=== PATIENT | female | born 1945 | race Caucasian/White ===

== ENCOUNTER 2017-05-13 15:39 | Inpatient (IN) | payer MEDICARE, OTHER ==
[2017-05-13 16:37] LABS: ADD MAN DIFF? NO
[2017-05-13 16:39] LABS: HEMOGLOBIN 13.6 g/dl (12.0-16.0); RED BLOOD COUNT 4.79 10^6/ul (4.20-5.40)
[2017-05-13 16:39] LABS: WHITE BLOOD COUNT 12.5 10^3/ul (4.8-10.8)
[2017-05-13 16:40] LABS: BASOPHIL # 0.1 10^3/ul (0.0-0.1); BASOPHILS % 0.7 % (0.0-2.0); EOSINOPHILS % 0.3 % (0.0-7.0); HEMATOCRIT 42.3 % (37.0-47.0); LYMPHOCYTES % 7.7 % (15.0-51.0); MEAN CORPUSCULAR HEMOGLOBIN 28.4 pg (29.0-33.0); MEAN CORPUSCULAR HGB CONC 32.2 g/dl (32.0-37.0); MEAN CORPUSCULAR VOLUME 88.3 fl (82.0-101.0); MEAN PLATELET VOLUME 9.5 fl (7.4-10.4); MONOCYTE # 0.6 10^3/ul (0.3-0.9); MONOCYTES % 4.6 % (0.0-11.0); NEUTROPHIL # 10.8 10^3/ul (1.6-7.5); NEUTROPHILS % 86.4 % (39.0-77.0); PLATELET COUNT 377 10^3/UL (140-415); RED CELL DISTRIBUTION WIDTH 15.4 % (11.5-14.5)
[2017-05-13] MEDS: ALBUTEROL 0.5% (NEB) 2.5 MG/0.5 ML AMP INH (16:54)
[2017-05-13] MEDS: IPRATROPIUM (NEB) 0.5 MG/2.5 ML AMP INH (16:54)
[2017-05-13 17:00] LABS: ALANINE AMINOTRANSFERASE 20 IU/L (13-69); ALBUMIN 3.8 g/dl (3.3-4.9); ALBUMIN/GLOBULIN RATIO 0.86; ALKALINE PHOSPHATASE 130 IU/L (42-121); ANION GAP 21 (8-16); ASPARTATE AMINO TRANSFERASE 32 IU/L (15-46); BLOOD UREA NITROGEN 21 mg/dl (7-20); CARBON DIOXIDE 24 mmol/L (21-31); CHLORIDE 103 mmol/L (97-110); CREATININE 0.38 mg/dl (0.44-1.00); GLUCOSE 117 mg/dl (70-220); PARTIAL THROMBOPLASTIN TIME 30.1 Sec (25.0-35.0); POTASSIUM 3.9 mmol/L (3.5-5.1); PROTIME 13.3 Sec (11.9-14.9); SODIUM 144 mmol/L (135-144); TOTAL PROTEIN 8.2 g/dl (6.1-8.1)
[2017-05-13 17:11] LABS: TROPONIN-I < 0.012 ng/ml (0.00-0.12)
[2017-05-13 17:13] LABS: LACTIC ACID 2.6 mmol/L (0.5-2.0)
[2017-05-13] MEDS: CEFEPIME 2GM/50 ML (PMX) 50 ML IVPB (17:51)
[2017-05-13] MEDS: SODIUM CHLORIDE 0.9% 1L BAG IV* (17:52)
[2017-05-13] MEDS: ACETAMINOPHEN 650 MG SUPP PR (17:52)
[2017-05-13] MEDS ORDERED: ACETAMINOPHEN 650MG/20.3ML CUP (17:57)
[2017-05-13 18:24] LABS: ADD UMIC YES; UR ASCORBIC ACID 40 mg/dL (NEGATIVE); UR BACTERIA FEW /HPF (NONE SEEN); UR BILIRUBIN (Dip) NEGATIVE (NEGATIVE); UR BLOOD (Dip) NEGATIVE (NEGATIVE); UR CLARITY CLOUDY (CLEAR); UR COLOR YELLOW (YELLOW); UR GLUCOSE (Dip) NEGATIVE (NEGATIVE); UR KETONES (Dip) NEGATIVE (NEGATIVE); UR LEUKOCYTE ESTERASE (Dip) 2+ Leu/ul (NEGATIVE); UR NITRITE (Dip) NEGATIVE (NEGATIVE); UR NONSQUAMOUS EPITHELIAL CELL 3 /HPF (NONE SEEN); UR RBC 3 /HPF (0-5); UR SPECIFIC GRAVITY (Dip) 1.011 (1.003-1.030); UR SQUAMOUS EPITHELIAL CELL FEW /HPF (FEW); UR TOTAL PROTEIN (Dip) 1+ mg/dl (NEGATIVE); UR UROBILINOGEN (Dip) NEGATIVE (NEGATIVE); UR WBC 27 /HPF (0-5)
[2017-05-13 18:29] LABS: LACTIC ACID 2.1 mmol/L (0.5-2.0)
[2017-05-13] MEDS: VANCOMYCIN 1 GM (PMX) 250 ML IVPB (18:48)
[2017-05-13 20:40] LABS: LACTIC ACID 1.6 mmol/L (0.5-2.0)
[2017-05-13] MEDS ORDERED: morphine 2 MG INJ IV (21:30)
[2017-05-13] MEDS ORDERED: NACL 0.9% 3 ML SYG IV (21:30)
[2017-05-13] MEDS ORDERED: ONDANSETRON 4 MG INJ IV ×2 (21:30)
[2017-05-13] MEDS ORDERED: VANCOMYCIN IV PER PHARMACY XX (21:30)
[2017-05-13] MEDS ORDERED: ACETAMINOPHEN 325 MG TAB PO (21:30)
[2017-05-14] MEDS: ACETAMINOPHEN 325 MG TAB PO ×2 (01:40→22:11)
[2017-05-14 06:12] LABS: ADD MAN DIFF? NO
[2017-05-14 06:24] LABS: WHITE BLOOD COUNT 12.5 10^3/ul (4.8-10.8)
[2017-05-14 06:24] LABS: BASOPHIL # 0.1 10^3/ul (0.0-0.1); BASOPHILS % 0.5 % (0.0-2.0); EOSINOPHILS # 0.1 10^3/ul (0.0-0.5); EOSINOPHILS % 0.5 % (0.0-7.0); HEMATOCRIT 40.1 % (37.0-47.0); HEMOGLOBIN 12.9 g/dl (12.0-16.0); LYMPHOCYTES # 1.1 10^3/ul (0.8-2.9); LYMPHOCYTES % 8.6 % (15.0-51.0); MEAN CORPUSCULAR HEMOGLOBIN 28.3 pg (29.0-33.0); MEAN CORPUSCULAR HGB CONC 32.2 g/dl (32.0-37.0); MEAN CORPUSCULAR VOLUME 87.9 fl (82.0-101.0); MEAN PLATELET VOLUME 9.3 fl (7.4-10.4); MONOCYTE # 0.7 10^3/ul (0.3-0.9); MONOCYTES % 5.5 % (0.0-11.0); NEUTROPHIL # 10.6 10^3/ul (1.6-7.5); NEUTROPHILS % 84.6 % (39.0-77.0); PLATELET COUNT 387 10^3/UL (140-415); RED BLOOD COUNT 4.56 10^6/ul (4.20-5.40); RED CELL DISTRIBUTION WIDTH 15.6 % (11.5-14.5)
[2017-05-14] MEDS ORDERED: PENDING SANTYL ORDER FOR WOUND CARE XX (06:30)
[2017-05-14 06:55] LABS: ALANINE AMINOTRANSFERASE 31 IU/L (13-69); ALBUMIN 3.4 g/dl (3.3-4.9); ALBUMIN/GLOBULIN RATIO 0.77; ALKALINE PHOSPHATASE 115 IU/L (42-121); ANION GAP 14 (8-16); ASPARTATE AMINO TRANSFERASE 30 IU/L (15-46); BILIRUBIN,INDIRECT 0.1 mg/dl (0-1.1); BILIRUBIN,TOTAL 0.1 mg/dl (0.2-1.3); BLOOD UREA NITROGEN 14 mg/dl (7-20); CALCIUM 8.6 mg/dl (8.4-10.2); CARBON DIOXIDE 25 mmol/L (21-31); CHLORIDE 111 mmol/L (97-110); GLUCOSE 93 mg/dl (70-220); POTASSIUM 3.2 mmol/L (3.5-5.1); SODIUM 147 mmol/L (135-144); TOTAL PROTEIN 7.8 g/dl (6.1-8.1)
[2017-05-14] MEDS ORDERED: COLLAGENASE 30 GM TUBE TOP (07:00)
[2017-05-14] MEDS: CEFEPIME 1GM/50 ML (PMX) 50 ML IVPB ×2 (08:58→21:19)
[2017-05-14] MEDS: FAMOTIDINE 20 MG INJ IV ×2 (08:59→21:18)
[2017-05-14] MEDS: COLLAGENASE 30 GM TUBE TOP (08:59)
[2017-05-14] MEDS: ENOXAPARIN 30 MG/0.3 ML SYG SC (09:06)
[2017-05-14] MEDS: VANCOMYCIN 750 MG in DEXTROSE 5% 150 ML IVPB ×2 (10:35→22:08)
[2017-05-14] MEDS: VANCOMYCIN 500MG/NS (PMX) 100 ML IVPB (11:13)
[2017-05-14] MEDS: POTASSIUM CHLORIDE (SR) 20 MEQ TAB PO (13:38)
[2017-05-14] MEDS: POTASSIUM CHLORIDE 20 MEQ POWDER FOR ORAL SOLN PO (13:39)
[2017-05-15] MEDS: ALBUTEROL/IPRATROPIUM (NEB) 3 ML AMP HHN ×2 (05:05→20:39)
[2017-05-15] MEDS: FAMOTIDINE 20 MG INJ IV (08:16)
[2017-05-15] MEDS: CEFEPIME 1GM/50 ML (PMX) 50 ML IVPB ×2 (08:16→20:50)
[2017-05-15] MEDS: ENOXAPARIN 30 MG/0.3 ML SYG SC (08:22)
[2017-05-15] MEDS: COLLAGENASE 30 GM TUBE TOP (08:24)
[2017-05-15 09:30] LABS: ADD MAN DIFF? NO
[2017-05-15 09:32] LABS: BASOPHIL # 0.1 10^3/ul (0.0-0.1); BASOPHILS % 0.6 % (0.0-2.0); EOSINOPHILS # 0.1 10^3/ul (0.0-0.5); EOSINOPHILS % 0.6 % (0.0-7.0); HEMATOCRIT 43.8 % (37.0-47.0); HEMOGLOBIN 14.1 g/dl (12.0-16.0); LYMPHOCYTES # 0.7 10^3/ul (0.8-2.9); LYMPHOCYTES % 6.3 % (15.0-51.0); MEAN CORPUSCULAR HEMOGLOBIN 28.4 pg (29.0-33.0); MEAN CORPUSCULAR HGB CONC 32.2 g/dl (32.0-37.0); MEAN CORPUSCULAR VOLUME 88.3 fl (82.0-101.0); MEAN PLATELET VOLUME 8.4 fl (7.4-10.4); MONOCYTE # 0.3 10^3/ul (0.3-0.9); MONOCYTES % 3.2 % (0.0-11.0); NEUTROPHIL # 9.3 10^3/ul (1.6-7.5); NEUTROPHILS % 88.8 % (39.0-77.0); PLATELET COUNT 429 10^3/UL (140-415); RED BLOOD COUNT 4.96 10^6/ul (4.20-5.40); RED CELL DISTRIBUTION WIDTH 15.1 % (11.5-14.5)
[2017-05-15 09:32] LABS: WHITE BLOOD COUNT 10.5 10^3/ul (4.8-10.8)
[2017-05-15 09:59] LABS: ANION GAP 21 (8-16); BLOOD UREA NITROGEN 12 mg/dl (7-20); CALCIUM 9.1 mg/dl (8.4-10.2); CARBON DIOXIDE 25 mmol/L (21-31); CHLORIDE 104 mmol/L (97-110); CREATININE 0.38 mg/dl (0.44-1.00); GLUCOSE 111 mg/dl (70-220); POTASSIUM 3.7 mmol/L (3.5-5.1); SODIUM 146 mmol/L (135-144)
[2017-05-15 10:07] LABS: VANCOMYCIN,TROUGH 12.9 ug/ml (10.0-20.0)
[2017-05-15] MEDS: VANCOMYCIN 750 MG in DEXTROSE 5% 150 ML IVPB ×2 (10:22→21:46)
[2017-05-15] MEDS: MUPIROCIN 2% 22 GM OINT TOP (20:50)
[2017-05-16] MEDS: ALBUTEROL/IPRATROPIUM (NEB) 3 ML AMP HHN ×5 (02:00→20:10)
[2017-05-16] MEDS ORDERED: LEVALBUTEROL (NEB) 0.63 MG/3 ML AMP HHN (06:00)
[2017-05-16 07:28] LABS: ADD MAN DIFF? NO
[2017-05-16 07:31] LABS: WHITE BLOOD COUNT 14.8 10^3/ul (4.8-10.8)
[2017-05-16 07:31] LABS: BASOPHILS % 0.3 % (0.0-2.0); EOSINOPHILS % 0.1 % (0.0-7.0); HEMOGLOBIN 13.6 g/dl (12.0-16.0); LYMPHOCYTES # 1.1 10^3/ul (0.8-2.9); LYMPHOCYTES % 7.3 % (15.0-51.0); MEAN CORPUSCULAR HEMOGLOBIN 27.9 pg (29.0-33.0); MEAN CORPUSCULAR HGB CONC 32.4 g/dl (32.0-37.0); MEAN CORPUSCULAR VOLUME 86.1 fl (82.0-101.0); MEAN PLATELET VOLUME 9.2 fl (7.4-10.4); MONOCYTE # 0.6 10^3/ul (0.3-0.9); MONOCYTES % 4.3 % (0.0-11.0); NEUTROPHILS % 87.7 % (39.0-77.0); PLATELET COUNT 415 10^3/UL (140-415); RED BLOOD COUNT 4.88 10^6/ul (4.20-5.40); RED CELL DISTRIBUTION WIDTH 15.1 % (11.5-14.5)
[2017-05-16 08:00] LABS: ANION GAP 16 (8-16); BLOOD UREA NITROGEN 13 mg/dl (7-20); CALCIUM 8.9 mg/dl (8.4-10.2); CARBON DIOXIDE 27 mmol/L (21-31); CHLORIDE 100 mmol/L (97-110); CREATININE 0.36 mg/dl (0.44-1.00); GLUCOSE 134 mg/dl (70-220); SODIUM 140 mmol/L (135-144)
[2017-05-16] MEDS: CEFEPIME 1GM/50 ML (PMX) 50 ML IVPB ×2 (09:02→21:16)
[2017-05-16] MEDS: MUPIROCIN 2% 22 GM OINT TOP ×2 (09:03→21:16)
[2017-05-16] MEDS: COLLAGENASE 30 GM TUBE TOP (09:03)
[2017-05-16] MEDS: ENOXAPARIN 40 MG/0.4 ML SYG SC (09:05)
[2017-05-16] MEDS: POTASSIUM CHLORIDE (SR) 20 MEQ TAB PO (10:30)
[2017-05-16] MEDS: VANCOMYCIN 750 MG in DEXTROSE 5% 150 ML IVPB ×2 (10:30→22:34)
[2017-05-17] MEDS: ALBUTEROL/IPRATROPIUM (NEB) 3 ML AMP HHN ×4 (01:36→19:28)
[2017-05-17 08:12] LABS: HEMATOCRIT 38.2 % (37.0-47.0); HEMOGLOBIN 12.6 g/dl (12.0-16.0); MEAN CORPUSCULAR HEMOGLOBIN 28.6 pg (29.0-33.0); MEAN CORPUSCULAR VOLUME 86.8 fl (82.0-101.0); PLATELET COUNT 363 10^3/UL (140-415); RED CELL DISTRIBUTION WIDTH 15.2 % (11.5-14.5)
[2017-05-17 08:12] LABS: WHITE BLOOD COUNT 11.8 10^3/ul (4.8-10.8)
[2017-05-17 08:27] LABS: POSITIVE DIFF @See below
[2017-05-17 08:28] LABS: ADD MAN DIFF? YES
[2017-05-17 08:51] LABS: ANION GAP 16 (8-16); BLOOD UREA NITROGEN 17 mg/dl (7-20); CALCIUM 8.9 mg/dl (8.4-10.2); CARBON DIOXIDE 25 mmol/L (21-31); CHLORIDE 105 mmol/L (97-110); CREATININE 0.35 mg/dl (0.44-1.00); GLUCOSE 93 mg/dl (70-220); SODIUM 143 mmol/L (135-144)
[2017-05-17] MEDS: CEFEPIME 1GM/50 ML (PMX) 50 ML IVPB (08:53)
[2017-05-17] MEDS: COLLAGENASE 30 GM TUBE TOP (08:53)
[2017-05-17] MEDS: MUPIROCIN 2% 22 GM OINT TOP ×2 (08:53→21:00)
[2017-05-17] MEDS: ENOXAPARIN 40 MG/0.4 ML SYG SC (09:16)
[2017-05-17 09:23] LABS: BAND NEUTROPHILS #M 0.7 10^3/ul (0.0-0.6); BAND NEUTROPHILS % (M) 6 % (0-4); LYMPHOCYTES #M 1.2 10^3/ul (0.8-2.9); LYMPHOCYTES % (M) 11 % (15-51); MONOCYTE #M 0.4 10^3/ul (0.3-0.9); MONOCYTES % (M) 4 % (0-11); PLATELET ESTIMATE NORMAL; SEG NEUT #M 9.4 10^3/ul (1.6-7.5); SEGMENTED NEUTROPHILS (M) % 79 % (39-77); SMUDGE%M 5 % (0-0)
[2017-05-17] MEDS: VANCOMYCIN 750 MG in DEXTROSE 5% 150 ML IVPB (09:29)
[2017-05-17] MEDS: CEFTRIAXONE 1 GM/NS 50 ML IVPB (17:22)
[2017-05-17] MEDS: POTASSIUM CHLORIDE 100 ML IVPB (18:25)
[2017-05-17] MEDS: POTASSIUM CHLORIDE 20 MEQ POWDER FOR ORAL SOLN PO (18:25)
[2017-05-17] MEDS ORDERED: CEFOTAXIME IVPB (22:00)
[2017-05-17] MEDS ORDERED: SOD CHLORIDE 0.9% IVPB (22:00)
[2017-05-18] MEDS: ALBUTEROL/IPRATROPIUM (NEB) 3 ML AMP HHN ×4 (01:57→19:23)
[2017-05-18] MEDS: MUPIROCIN 2% 22 GM OINT TOP ×2 (08:09→21:23)
[2017-05-18] MEDS: COLLAGENASE 30 GM TUBE TOP (08:09)
[2017-05-18] MEDS: ENOXAPARIN 40 MG/0.4 ML SYG SC (08:35)
[2017-05-18 13:53] LABS: ADD MAN DIFF? NO
[2017-05-18 13:56] LABS: BASOPHIL # 0.1 10^3/ul (0.0-0.1); BASOPHILS % 0.6 % (0.0-2.0); EOSINOPHILS # 0.2 10^3/ul (0.0-0.5); EOSINOPHILS % 2.5 % (0.0-7.0); HEMATOCRIT 37.1 % (37.0-47.0); HEMOGLOBIN 12.2 g/dl (12.0-16.0); LYMPHOCYTES # 1.4 10^3/ul (0.8-2.9); LYMPHOCYTES % 17.6 % (15.0-51.0); MEAN CORPUSCULAR HEMOGLOBIN 28.6 pg (29.0-33.0); MEAN CORPUSCULAR HGB CONC 32.9 g/dl (32.0-37.0); MEAN CORPUSCULAR VOLUME 86.9 fl (82.0-101.0); MEAN PLATELET VOLUME 9.5 fl (7.4-10.4); MONOCYTE # 0.5 10^3/ul (0.3-0.9); MONOCYTES % 6.2 % (0.0-11.0); NEUTROPHIL # 5.9 10^3/ul (1.6-7.5); NEUTROPHILS % 72.6 % (39.0-77.0); PLATELET COUNT 349 10^3/UL (140-415); RED BLOOD COUNT 4.27 10^6/ul (4.20-5.40); RED CELL DISTRIBUTION WIDTH 15.2 % (11.5-14.5)
[2017-05-18 13:56] LABS: WHITE BLOOD COUNT 8.1 10^3/ul (4.8-10.8)
[2017-05-18 14:05] LABS: POSITIVE DIFF @See below
[2017-05-18 14:14] LABS: ANION GAP 17 (8-16); BLOOD UREA NITROGEN 16 mg/dl (7-20); CALCIUM 8.8 mg/dl (8.4-10.2); CARBON DIOXIDE 25 mmol/L (21-31); CHLORIDE 106 mmol/L (97-110); CREATININE 0.34 mg/dl (0.44-1.00); GLUCOSE 89 mg/dl (70-220); POTASSIUM 3.6 mmol/L (3.5-5.1); SODIUM 144 mmol/L (135-144)
[2017-05-18] MEDS: CEFTRIAXONE 1 GM/NS 50 ML IVPB (16:07)
[2017-05-18 16:54] LABS: ANISOCYTOSIS 1+ (0-0); BAND NEUTROPHILS #M 0.6 10^3/ul (0.0-0.6); BAND NEUTROPHILS % (M) 8 % (0-4); EOSINOPHILS % (M) 1 % (0-7); LYMPHOCYTES #M 1.6 10^3/ul (0.8-2.9); LYMPHOCYTES % (M) 20 % (15-51); MICROCYTOSIS 1+ (0-0); MONOCYTE #M 0.3 10^3/ul (0.3-0.9); MONOCYTES % (M) 4 % (0-11); PLASMAC%(M) 1 % (0); PLATELET ESTIMATE NORMAL; POLYCHROMASIA 3+ (0-0); SEG NEUT #M 5.4 10^3/ul (1.6-7.5); SEGMENTED NEUTROPHILS (M) % 66 % (39-77); SMUDGE%M 3 % (0-0)
[2017-05-19] MEDS: ALBUTEROL/IPRATROPIUM (NEB) 3 ML AMP HHN ×4 (01:12→19:27)
[2017-05-19 08:10] LABS: WHITE BLOOD COUNT 7.2 10^3/ul (4.8-10.8)
[2017-05-19 08:10] LABS: HEMATOCRIT 37.5 % (37.0-47.0); HEMOGLOBIN 11.9 g/dl (12.0-16.0); MEAN CORPUSCULAR HEMOGLOBIN 27.6 pg (29.0-33.0); MEAN CORPUSCULAR HGB CONC 31.7 g/dl (32.0-37.0); MEAN PLATELET VOLUME 9.1 fl (7.4-10.4); PLATELET COUNT 401 10^3/UL (140-415); RED BLOOD COUNT 4.31 10^6/ul (4.20-5.40); RED CELL DISTRIBUTION WIDTH 15.2 % (11.5-14.5)
[2017-05-19 08:14] LABS: POSITIVE DIFF @See below
[2017-05-19 08:15] LABS: ADD MAN DIFF? YES
[2017-05-19 08:40] LABS: ANION GAP 16 (8-16); BLOOD UREA NITROGEN 14 mg/dl (7-20); CALCIUM 9.1 mg/dl (8.4-10.2); CARBON DIOXIDE 28 mmol/L (21-31); CHLORIDE 106 mmol/L (97-110); CREATININE 0.38 mg/dl (0.44-1.00); GLUCOSE 102 mg/dl (70-220); POTASSIUM 4.1 mmol/L (3.5-5.1); SODIUM 146 mmol/L (135-144)
[2017-05-19] MEDS: MUPIROCIN 2% 22 GM OINT TOP ×2 (09:13→21:17)
[2017-05-19] MEDS: COLLAGENASE 30 GM TUBE TOP (09:13)
[2017-05-19] MEDS ORDERED: VITAMIN A & D 5 GM OINT PACKET TOP (09:24)
[2017-05-19] MEDS: ENOXAPARIN 40 MG/0.4 ML SYG SC (09:39)
[2017-05-19 09:48] LABS: BAND NEUTROPHILS #M 0.1 10^3/ul (0.0-0.6); BAND NEUTROPHILS % (M) 2 % (0-4); EOSINOPHILS % (M) 3 % (0-7); GIANT THROMBO% (M) 3 % (0-0); LYMPHOCYTES #M 0.9 10^3/ul (0.8-2.9); LYMPHOCYTES % (M) 13 % (15-51); MONOCYTE #M 0.7 10^3/ul (0.3-0.9); MONOCYTES % (M) 11 % (0-11); PLATELET ESTIMATE NORMAL; POLYCHROMASIA 1+ (0-0); REACTIVE LYMPHOCYTES #M 0.2 10^3/ul (0.0-0.0); REACTIVE LYMPHOCYTES% (M) 4 % (0-0); SEG NEUT #M 4.8 10^3/ul (1.6-7.5); SEGMENTED NEUTROPHILS (M) % 67 % (39-77); SMUDGE%M 1 % (0-0)
[2017-05-19] MEDS: CEFTRIAXONE 1 GM/NS 50 ML IVPB (16:39)
[2017-05-19] MEDS: ACETYLCYSTEINE 20% 4 ML VIAL NEB (19:27)
[2017-05-19] MEDS: CLOTRIMAZOLE 1% 30 GM CR TOP (21:24)
[2017-05-20] MEDS: ACETYLCYSTEINE 20% 4 ML VIAL NEB ×4 (01:44→19:42)
[2017-05-20] MEDS: ALBUTEROL/IPRATROPIUM (NEB) 3 ML AMP HHN ×4 (01:44→19:43)
[2017-05-20 07:22] LABS: ANION GAP 15 (8-16); BLOOD UREA NITROGEN 14 mg/dl (7-20); CALCIUM 8.7 mg/dl (8.4-10.2); CARBON DIOXIDE 30 mmol/L (21-31); CHLORIDE 105 mmol/L (97-110); CREATININE 0.35 mg/dl (0.44-1.00); GLUCOSE 102 mg/dl (70-220); POTASSIUM 3.7 mmol/L (3.5-5.1); SODIUM 146 mmol/L (135-144)
[2017-05-20] MEDS: MUPIROCIN 2% 22 GM OINT TOP ×2 (08:24→20:37)
[2017-05-20] MEDS: CLOTRIMAZOLE 1% 30 GM CR TOP ×2 (08:24→20:37)
[2017-05-20] MEDS: COLLAGENASE 30 GM TUBE TOP (08:25)
[2017-05-20] MEDS: ENOXAPARIN 40 MG/0.4 ML SYG SC (08:37)
[2017-05-20] MEDS: CEFTRIAXONE 1 GM/NS 50 ML IVPB (17:24)
[2017-05-21] MEDS: ALBUTEROL/IPRATROPIUM (NEB) 3 ML AMP HHN ×4 (01:12→19:35)
[2017-05-21] MEDS: ACETYLCYSTEINE 20% 4 ML VIAL NEB ×4 (01:12→19:35)
[2017-05-21 07:01] LABS: ANION GAP 13 (8-16); BLOOD UREA NITROGEN 11 mg/dl (7-20); CARBON DIOXIDE 30 mmol/L (21-31); CHLORIDE 105 mmol/L (97-110); CREATININE 0.31 mg/dl (0.44-1.00); GLUCOSE 106 mg/dl (70-220); POTASSIUM 3.5 mmol/L (3.5-5.1); SODIUM 144 mmol/L (135-144)
[2017-05-21] MEDS: CLOTRIMAZOLE 1% 30 GM CR TOP ×2 (08:50→22:02)
[2017-05-21] MEDS: COLLAGENASE 30 GM TUBE TOP (08:50)
[2017-05-21] MEDS: MUPIROCIN 2% 22 GM OINT TOP ×2 (08:51→21:00)
[2017-05-21] MEDS: ENOXAPARIN 40 MG/0.4 ML SYG SC (08:52)
[2017-05-21 14:16] LABS: PROCALCITONIN 0.12 ng/mL (<0.10)
[2017-05-22] MEDS: ALBUTEROL/IPRATROPIUM (NEB) 3 ML AMP HHN ×4 (01:35→20:31)
[2017-05-22] MEDS: ACETYLCYSTEINE 20% 4 ML VIAL NEB ×4 (01:35→20:36)
[2017-05-22 07:19] LABS: ADD MAN DIFF? NO
[2017-05-22 07:22] LABS: WHITE BLOOD COUNT 10.9 10^3/ul (4.8-10.8)
[2017-05-22 07:22] LABS: BASOPHIL # 0.1 10^3/ul (0.0-0.1); BASOPHILS % 0.6 % (0.0-2.0); EOSINOPHILS # 0.2 10^3/ul (0.0-0.5); EOSINOPHILS % 2.1 % (0.0-7.0); HEMATOCRIT 38.1 % (37.0-47.0); HEMOGLOBIN 12.1 g/dl (12.0-16.0); LYMPHOCYTES # 1.3 10^3/ul (0.8-2.9); LYMPHOCYTES % 12.3 % (15.0-51.0); MEAN CORPUSCULAR HEMOGLOBIN 27.6 pg (29.0-33.0); MEAN CORPUSCULAR HGB CONC 31.8 g/dl (32.0-37.0); MEAN CORPUSCULAR VOLUME 86.8 fl (82.0-101.0); MEAN PLATELET VOLUME 9.5 fl (7.4-10.4); MONOCYTE # 0.6 10^3/ul (0.3-0.9); MONOCYTES % 5.4 % (0.0-11.0); NEUTROPHIL # 8.6 10^3/ul (1.6-7.5); NEUTROPHILS % 79.2 % (39.0-77.0); PLATELET COUNT 460 10^3/UL (140-415); RED BLOOD COUNT 4.39 10^6/ul (4.20-5.40); RED CELL DISTRIBUTION WIDTH 15.1 % (11.5-14.5)
[2017-05-22 07:49] LABS: ANION GAP 16 (8-16); BLOOD UREA NITROGEN 9 mg/dl (7-20); CALCIUM 8.8 mg/dl (8.4-10.2); CARBON DIOXIDE 28 mmol/L (21-31); CHLORIDE 106 mmol/L (97-110); CREATININE 0.37 mg/dl (0.44-1.00); GLUCOSE 117 mg/dl (70-220); POTASSIUM 3.5 mmol/L (3.5-5.1); SODIUM 146 mmol/L (135-144)
[2017-05-22] MEDS: COLLAGENASE 30 GM TUBE TOP ×2 (09:20→21:41)
[2017-05-22] MEDS: MUPIROCIN 2% 22 GM OINT TOP ×2 (09:20→21:42)
[2017-05-22] MEDS: CLOTRIMAZOLE 1% 30 GM CR TOP ×2 (09:20→21:40)
[2017-05-22] MEDS: ENOXAPARIN 40 MG/0.4 ML SYG SC (09:24)
[2017-05-23] MEDS: ALBUTEROL/IPRATROPIUM (NEB) 3 ML AMP HHN ×5 (01:37→19:33)
[2017-05-23] MEDS: ACETYLCYSTEINE 20% 4 ML VIAL NEB ×4 (01:38→19:33)
[2017-05-23 06:03] LABS: ADD MAN DIFF? NO
[2017-05-23 06:13] LABS: WHITE BLOOD COUNT 12.7 10^3/ul (4.8-10.8)
[2017-05-23 06:13] LABS: BASOPHIL # 0.1 10^3/ul (0.0-0.1); BASOPHILS % 0.6 % (0.0-2.0); EOSINOPHILS # 0.2 10^3/ul (0.0-0.5); EOSINOPHILS % 1.9 % (0.0-7.0); HEMATOCRIT 37.3 % (37.0-47.0); HEMOGLOBIN 11.8 g/dl (12.0-16.0); LYMPHOCYTES # 1.4 10^3/ul (0.8-2.9); LYMPHOCYTES % 11.2 % (15.0-51.0); MEAN CORPUSCULAR HEMOGLOBIN 27.5 pg (29.0-33.0); MEAN CORPUSCULAR HGB CONC 31.6 g/dl (32.0-37.0); MEAN CORPUSCULAR VOLUME 86.9 fl (82.0-101.0); MEAN PLATELET VOLUME 9.2 fl (7.4-10.4); MONOCYTE # 0.6 10^3/ul (0.3-0.9); MONOCYTES % 4.5 % (0.0-11.0); NEUTROPHIL # 10.4 10^3/ul (1.6-7.5); NEUTROPHILS % 81.4 % (39.0-77.0); PLATELET COUNT 508 10^3/UL (140-415); RED BLOOD COUNT 4.29 10^6/ul (4.20-5.40); RED CELL DISTRIBUTION WIDTH 15.1 % (11.5-14.5)
[2017-05-23 06:30] LABS: ANION GAP 15 (8-16); BLOOD UREA NITROGEN 16 mg/dl (7-20); CALCIUM 8.8 mg/dl (8.4-10.2); CARBON DIOXIDE 25 mmol/L (21-31); CHLORIDE 107 mmol/L (97-110); GLUCOSE 107 mg/dl (70-220); SODIUM 144 mmol/L (135-144)
[2017-05-23 06:35] LABS: POTASSIUM 2.9 mmol/L (3.5-5.1)
[2017-05-23] MEDS: POTASSIUM CHLORIDE (SR) 20 MEQ TAB PO (06:55)
[2017-05-23] MEDS: CLOTRIMAZOLE 1% 30 GM CR TOP (09:10)
[2017-05-23] MEDS: COLLAGENASE 30 GM TUBE TOP (09:10)
[2017-05-23] MEDS: MUPIROCIN 2% 22 GM OINT TOP (09:10)
[2017-05-23] MEDS: ENOXAPARIN 40 MG/0.4 ML SYG SC (09:17)
== END 2017-05-23 20:05 | disposition home health service (06) | DRG 871 ==
LOC: TEL 05-14 01:02 → MS4 05-18 12:20 → TEL 05-14 01:05 → E/R 15:39 → TEL 05-14 01:42 → MS2 05-22 17:50 → TEL 21:25
PROC: 0DP0XUZ Removal of Feeding Device from Upper Intestinal Tract, External Approach (ICD-10-PCS; principal; 2017-05-22)
DX: A41.89 Other specified sepsis (principal); L89.154 Pressure ulcer of sacral region, stage 4; L89.224 Pressure ulcer of left hip, stage 4; L89.214 Pressure ulcer of right hip, stage 4; R53.2 Functional quadriplegia; N39.0 Urinary tract infection, site not specified; E44.0 Moderate protein-calorie malnutrition; J96.10 Chronic respiratory failure, unspecified whether with hypoxia or hypercapnia; G71.0 Muscular dystrophy; Z93.6 Other artificial openings of urinary tract status; Z93.1 Gastrostomy status; Z68.1 Body mass index [BMI] 19.9 or less, adult; N31.9 Neuromuscular dysfunction of bladder, unspecified; N13.9 Obstructive and reflux uropathy, unspecified; N31.8 Other neuromuscular dysfunction of bladder; R13.10 Dysphagia, unspecified; B96.1 Klebsiella pneumoniae [K. pneumoniae] as the cause of diseases classified elsewhere; I10 Essential (primary) hypertension; J40 Bronchitis, not specified as acute or chronic; L30.8 Other specified dermatitis; E03.9 Hypothyroidism, unspecified; Z87.2 Personal history of diseases of the skin and subcutaneous tissue
CPT/HCPCS: 36415; 71045; 80048; 80053; 80202; 81001; 83605; 84145; 84484; 85025; 85610; 85730; 87040; 87070; 87081; 87086; 92610; 93005; 94640; 94644; 94664; 96374; 96375; 99291-25

== ENCOUNTER 2017-05-28 17:08 | Inpatient (IN) | payer MEDICARE, OTHER ==
[2017-05-28] MEDS ORDERED: ALBUTEROL 0.5% (NEB) 2.5 MG/0.5 ML AMP INH (17:11)
[2017-05-28 18:14] LABS: WHITE BLOOD COUNT 26.7 10^3/ul (4.8-10.8)
[2017-05-28 18:14] LABS: ABNORMAL IP MESSAGE 1; HEMATOCRIT 45.4 % (37.0-47.0); HEMOGLOBIN 14.4 g/dl (12.0-16.0); MEAN CORPUSCULAR HEMOGLOBIN 27.6 pg (29.0-33.0); MEAN CORPUSCULAR HGB CONC 31.7 g/dl (32.0-37.0); MEAN CORPUSCULAR VOLUME 87.1 fl (82.0-101.0); MEAN PLATELET VOLUME 10.2 fl (7.4-10.4); PLATELET COUNT 558 10^3/UL (140-415); RED BLOOD COUNT 5.21 10^6/ul (4.20-5.40); RED CELL DISTRIBUTION WIDTH 15.9 % (11.5-14.5)
[2017-05-28 18:25] LABS: ADD MAN DIFF? YES; POSITIVE DIFF @See below
[2017-05-28 18:26] LABS: PATH REVIEW? YES
[2017-05-28] MEDS: IPRATROPIUM (NEB) 0.5 MG/2.5 ML AMP NEB (18:27)
[2017-05-28] MEDS: LEVALBUTEROL (NEB) 1.25 MG/0.5 ML AMP INH (18:27)
[2017-05-28 18:35] LABS: INR 0.93; PROTIME 12.5 Sec (11.9-14.9)
[2017-05-28 18:36] LABS: ALANINE AMINOTRANSFERASE 24 IU/L (13-69); ALBUMIN 3.7 g/dl (3.3-4.9); ALBUMIN/GLOBULIN RATIO 0.78; ALKALINE PHOSPHATASE 147 IU/L (42-121); ANION GAP 17 (8-16); ASPARTATE AMINO TRANSFERASE 25 IU/L (15-46); BLOOD UREA NITROGEN 21 mg/dl (7-20); CALCIUM 10.1 mg/dl (8.4-10.2); CARBON DIOXIDE 31 mmol/L (21-31); CHLORIDE 100 mmol/L (97-110); CREATININE 0.37 mg/dl (0.44-1.00); GLUCOSE 216 mg/dl (70-220); LIPASE 67 U/L (23-300); PARTIAL THROMBOPLASTIN TIME 28.6 Sec (25.0-35.0); POTASSIUM 4.6 mmol/L (3.5-5.1); SODIUM 143 mmol/L (135-144); TOTAL PROTEIN 8.4 g/dl (6.1-8.1)
[2017-05-28 18:48] LABS: TROPONIN-I < 0.012 ng/ml (0.00-0.12)
[2017-05-28 18:51] LABS: LACTIC ACID 3.5 mmol/L (0.5-2.0)
[2017-05-28 19:22] LABS: ANISOCYTOSIS 2+ (0-0); BAND NEUTROPHILS % (M) 4 % (0-4); LYMPHOCYTES % (M) 4 % (15-51); MICROCYTOSIS 1+ (0-0); MONOCYTES % (M) 4 % (0-11); PLATELET ESTIMATE INCREASED; POLYCHROMASIA 3+ (0-0); SEG NEUT #M 23.8 10^3/ul (1.6-7.5); SEGMENTED NEUTROPHILS (M) % 88 % (39-77); SMUDGE%M 1 % (0-0)
[2017-05-28] MEDS: SODIUM CHLORIDE 0.9% 1L BAG IV* (19:22)
[2017-05-28] MEDS: CEFEPIME 2GM/50 ML (PMX) 50 ML IVPB (19:23)
[2017-05-28] MEDS ORDERED: ACETAMINOPHEN 325 MG TAB PO (19:30)
[2017-05-28] MEDS: VANCOMYCIN 1 GM (PMX) 250 ML IVPB (20:03)
[2017-05-28] MEDS: ONDANSETRON 4 MG INJ IV (20:09)
[2017-05-28 20:34] LABS: LACTIC ACID 5.5 mmol/L (0.5-2.0)
[2017-05-28] MEDS ORDERED: LORAZEPAM 2 MG INJ (20:46)
[2017-05-28] MEDS: LORAZEPAM 2 MG INJ IV (21:06)
[2017-05-28 21:48] LABS: ADD UMIC YES; UR ASCORBIC ACID 40 mg/dL (NEGATIVE); UR BACTERIA FEW /HPF (NONE SEEN); UR BILIRUBIN (Dip) NEGATIVE (NEGATIVE); UR BLOOD (Dip) NEGATIVE (NEGATIVE); UR CLARITY CLOUDY (CLEAR); UR COLOR YELLOW (YELLOW); UR GLUCOSE (Dip) NEGATIVE (NEGATIVE); UR KETONES (Dip) TRACE mg/dL (NEGATIVE); UR LEUKOCYTE ESTERASE (Dip) 2+ Leu/ul (NEGATIVE); UR MUCUS MANY /HPF (NONE SEEN); UR NITRITE (Dip) NEGATIVE (NEGATIVE); UR RBC 20 /HPF (0-5); UR SPECIFIC GRAVITY (Dip) 1.029 (1.003-1.030); UR SQUAMOUS EPITHELIAL CELL FEW /HPF (FEW); UR TOTAL PROTEIN (Dip) 1+ mg/dl (NEGATIVE); UR UROBILINOGEN (Dip) NEGATIVE (NEGATIVE); UR WBC 156 /HPF (0-5)
[2017-05-28 22:11] LABS: LACTIC ACID 4.4 mmol/L (0.5-2.0)
[2017-05-28 23:35] LABS: LACTIC ACID 4.2 mmol/L (0.5-2.0)
[2017-05-29 01:22] LABS: TROPONIN-I < 0.012 ng/ml (0.00-0.12)
[2017-05-29] MEDS ORDERED: PENDING SANTYL ORDER FOR WOUND CARE XX (02:00)
[2017-05-29] MEDS: D5W-0.45 NACL + KCL 20 MEQ 1,000 ML IV (02:24)
[2017-05-29] MEDS: LORAZEPAM 2 MG INJ IV (02:26)
[2017-05-29] MEDS: morphine 2 MG INJ IV ×2 (02:26→20:55)
[2017-05-29] MEDS: LEVALBUTEROL (NEB) 0.31 MG/3 ML AMP HHN ×2 (03:08→11:44)
[2017-05-29] MEDS: IPRATROPIUM (NEB) 0.5 MG/2.5 ML AMP HHN ×2 (03:08→11:44)
[2017-05-29] MEDS: PANTOPRAZOLE 40 MG INJ IV (05:27)
[2017-05-29] MEDS: metroNIDAZOLE 500 MG/NS (PMX) 100 ML IVPB ×3 (05:28→21:11)
[2017-05-29] MEDS: ENOXAPARIN 30 MG/0.3 ML SYG SC (08:40)
[2017-05-29] MEDS: CEFEPIME 1GM/50 ML (PMX) 50 ML IVPB (08:41)
[2017-05-29 09:23] LABS: ABNORMAL IP MESSAGE 1; HEMATOCRIT 36.1 % (37.0-47.0); HEMOGLOBIN 11.3 g/dl (12.0-16.0); MEAN CORPUSCULAR HEMOGLOBIN 27.8 pg (29.0-33.0); MEAN CORPUSCULAR HGB CONC 31.3 g/dl (32.0-37.0); MEAN CORPUSCULAR VOLUME 88.7 fl (82.0-101.0); MEAN PLATELET VOLUME 10.3 fl (7.4-10.4); PLATELET COUNT 431 10^3/UL (140-415); RED BLOOD COUNT 4.07 10^6/ul (4.20-5.40); RED CELL DISTRIBUTION WIDTH 16.3 % (11.5-14.5)
[2017-05-29 09:23] LABS: WHITE BLOOD COUNT 28.8 10^3/ul (4.8-10.8)
[2017-05-29 09:24] LABS: POSITIVE DIFF @See below
[2017-05-29 09:30] LABS: ADD MAN DIFF? YES
[2017-05-29] MEDS: DIATR MEGLU/DIATRIZOATE SODIUM 120 ML BTL (09:35)
[2017-05-29 09:41] LABS: ANION GAP 21 (8-16); BLOOD UREA NITROGEN 31 mg/dl (7-20); CALCIUM 8.9 mg/dl (8.4-10.2); CARBON DIOXIDE 24 mmol/L (21-31); CHLORIDE 105 mmol/L (97-110); CREATININE 0.54 mg/dl (0.44-1.00); GLUCOSE 209 mg/dl (70-220); SODIUM 144 mmol/L (135-144)
[2017-05-29] MEDS: ONDANSETRON 4 MG INJ (09:50)
[2017-05-29 09:55] LABS: POTASSIUM 5.8 mmol/L (3.5-5.1)
[2017-05-29 10:20] LABS: ANISOCYTOSIS 1+ (0-0); BAND NEUTROPHILS #M 2.3 10^3/ul (0.0-0.6); BAND NEUTROPHILS % (M) 8 % (0-4); HYPOCHROMASIA 1+ (0-0); LYMPHOCYTES #M 0.8 10^3/ul (0.8-2.9); LYMPHOCYTES % (M) 3 % (15-51); MICROCYTOSIS 1+ (0-0); MONOCYTE #M 0.8 10^3/ul (0.3-0.9); MONOCYTES % (M) 3 % (0-11); PLATELET ESTIMATE NORMAL; POIKILOCYTOSIS 1+ (0-0); POLYCHROMASIA 3+ (0-0); REACTIVE LYMPHOCYTES #M 0.2 10^3/ul (0.0-0.0); REACTIVE LYMPHOCYTES% (M) 1 % (0-0); SEG NEUT #M 25.1 10^3/ul (1.6-7.5); SEGMENTED NEUTROPHILS (M) % 85 % (39-77); SMUDGE%M 1 % (0-0)
[2017-05-29] MEDS ORDERED: VANCOMYCIN IV PER PHARMACY XX (13:00)
[2017-05-29] MEDS: DEXTROSE 5%-0.45% NACL 1,000 ML IV ×2 (13:43→22:30)
[2017-05-29 17:05] LABS: CREATININE,URINE RANDOM 80.01 mg/dl (20-320)
[2017-05-29 17:08] LABS: SODIUM,URINE RANDOM < 5 mmol/L (30-90)
[2017-05-29 17:44] LABS: ADD UMIC YES; UR ASCORBIC ACID 40 mg/dL (NEGATIVE); UR BACTERIA FEW /HPF (NONE SEEN); UR BILIRUBIN (Dip) NEGATIVE (NEGATIVE); UR BLOOD (Dip) NEGATIVE (NEGATIVE); UR CLARITY CLOUDY (CLEAR); UR COLOR AMBER (YELLOW); UR GLUCOSE (Dip) NEGATIVE (NEGATIVE); UR KETONES (Dip) TRACE mg/dL (NEGATIVE); UR LEUKOCYTE ESTERASE (Dip) 2+ Leu/ul (NEGATIVE); UR MUCUS MANY /HPF (NONE SEEN); UR NITRITE (Dip) NEGATIVE (NEGATIVE); UR NONSQUAMOUS EPITHELIAL CELL 3 /HPF (NONE SEEN); UR RBC 17 /HPF (0-5); UR SPECIFIC GRAVITY (Dip) 1.023 (1.003-1.030); UR SQUAMOUS EPITHELIAL CELL FEW /HPF (FEW); UR TOTAL PROTEIN (Dip) 1+ mg/dl (NEGATIVE); UR UROBILINOGEN (Dip) NEGATIVE (NEGATIVE); UR WBC 85 /HPF (0-5)
[2017-05-29] MEDS: VANCOMYCIN 750 MG in DEXTROSE 5% 150 ML IVPB (17:52)
[2017-05-30] MEDS: ONDANSETRON 4 MG INJ IV (03:16)
[2017-05-30] MEDS: morphine 2 MG INJ IV (03:17)
[2017-05-30] MEDS: VANCOMYCIN 750 MG in DEXTROSE 5% 150 ML IVPB (04:05)
[2017-05-30] MEDS: metroNIDAZOLE 500 MG/NS (PMX) 100 ML IVPB ×3 (05:45→23:02)
[2017-05-30] MEDS: PANTOPRAZOLE 40 MG INJ IV (05:45)
[2017-05-30] MEDS ORDERED: EPHEDrine SULFATE 50 MG/5 ML SYG (07:00)
[2017-05-30 08:30] LABS: WHITE BLOOD COUNT 46.7 10^3/ul (4.8-10.8)
[2017-05-30 08:30] LABS: ABNORMAL IP MESSAGE 1; HEMATOCRIT 29.6 % (37.0-47.0); HEMOGLOBIN 9.1 g/dl (12.0-16.0); MEAN CORPUSCULAR HEMOGLOBIN 27.7 pg (29.0-33.0); MEAN CORPUSCULAR HGB CONC 30.7 g/dl (32.0-37.0); PLATELET COUNT 534 10^3/UL (140-415); RED BLOOD COUNT 3.29 10^6/ul (4.20-5.40); RED CELL DISTRIBUTION WIDTH 16.8 % (11.5-14.5)
[2017-05-30 08:48] LABS: ANION GAP 28 (8-16); BLOOD UREA NITROGEN 50 mg/dl (7-20); CARBON DIOXIDE 23 mmol/L (21-31); CHLORIDE 102 mmol/L (97-110); CREATININE 1.46 mg/dl (0.44-1.00); GLUCOSE 170 mg/dl (70-220); SODIUM 147 mmol/L (135-144)
[2017-05-30 08:49] LABS: ADD MAN DIFF? YES; POSITIVE DIFF @See below
[2017-05-30] MEDS: DEXTROSE 5%-0.45% NACL 1,000 ML IV (08:49)
[2017-05-30] MEDS: ENOXAPARIN 30 MG/0.3 ML SYG SC (08:50)
[2017-05-30 08:52] LABS: POTASSIUM 6.1 mmol/L (3.5-5.1)
[2017-05-30 10:23] LABS: ANISOCYTOSIS 1+ (0-0); BAND NEUTROPHILS % (M) 15 % (0-4); LYMPHOCYTES #M 0.9 10^3/ul (0.8-2.9); LYMPHOCYTES % (M) 2 % (15-51); MONOCYTE #M 4.2 10^3/ul (0.3-0.9); MONOCYTES % (M) 9 % (0-11); PLATELET ESTIMATE INCREASED; POIKILOCYTOSIS 2+ (0-0); POLYCHROMASIA 3+ (0-0); REACTIVE LYMPHOCYTES #M 0.4 10^3/ul (0.0-0.0); REACTIVE LYMPHOCYTES% (M) 1 % (0-0); SEG NEUT #M 37.4 10^3/ul (1.6-7.5); SEGMENTED NEUTROPHILS (M) % 73 % (39-77); SMUDGE%M 2 % (0-0)
[2017-05-30] MEDS: CEFEPIME 1GM/50 ML (PMX) 50 ML IVPB (10:50)
[2017-05-30] MEDS: SOD CHLORIDE 0.9% 1,000 ML IV ×4 (10:52→20:01)
[2017-05-30] MEDS: DEXTROSE 50% 50 ML SYRINGE IV (10:57)
[2017-05-30] MEDS: INSULIN LISPRO 100 UNIT/ML VIAL SC (12:20)
[2017-05-30] MEDS: LEVALBUTEROL (NEB) 0.63 MG/3 ML AMP HHN (15:15)
[2017-05-30 15:35] LABS: ANION GAP 16 (8-16); BLOOD UREA NITROGEN 50 mg/dl (7-20); CALCIUM 8.5 mg/dl (8.4-10.2); CARBON DIOXIDE 27 mmol/L (21-31); CHLORIDE 109 mmol/L (97-110); CREATININE 1.31 mg/dl (0.44-1.00); GLUCOSE 113 mg/dl (70-220); POTASSIUM 5.2 mmol/L (3.5-5.1); SODIUM 147 mmol/L (135-144)
[2017-05-30] MEDS ORDERED: PROPOFOL 20 ML (18:24)
[2017-05-30] MEDS ORDERED: LIDOCAINE 2% (SDV) 5 ML INJ (18:24)
[2017-05-30] MEDS ORDERED: ROCURONIUM 50 MG INJ (18:24)
[2017-05-30] MEDS ORDERED: NEOSTIGMINE 3 MG/3 ML SYRINGE (18:24)
[2017-05-30] MEDS ORDERED: GLYCOPYRROLATE 0.4 MG INJ (18:24)
[2017-05-30] MEDS ORDERED: SUCCINYLCHOLINE CHLORIDE 100 MG/5 ML SYG IV (18:24)
[2017-05-30] MEDS ORDERED: MIDAZOLAM 1 MG/ML 2 ML INJ (18:52)
[2017-05-30] MEDS ORDERED: metroNIDAZOLE 500 MG/NS (PMX) 100 ML IVPB (18:58)
[2017-05-30] MEDS ORDERED: CEFAZOLIN 1 GM INJ (18:58)
[2017-05-30] MEDS ORDERED: ONDANSETRON 4 MG INJ IV (19:30)
[2017-05-30] MEDS ORDERED: morphine 2 MG INJ IV ×3 (19:30→20:00)
[2017-05-30] MEDS ORDERED: FENTAnyl 50 MCG/ML VIAL IV ×3 (20:00)
[2017-05-30] MEDS ORDERED: morphine 10 MG INJ IV (20:00)
[2017-05-30 20:43] LABS: ADD MAN DIFF? NO
[2017-05-30 20:44] LABS: WHITE BLOOD COUNT 32.8 10^3/ul (4.8-10.8)
[2017-05-30 20:44] LABS: ABNORMAL IP MESSAGE 1; BASOPHIL # 0.1 10^3/ul (0.0-0.1); BASOPHILS % 0.2 % (0.0-2.0); HEMATOCRIT 24.8 % (37.0-47.0); HEMOGLOBIN 7.8 g/dl (12.0-16.0); LYMPHOCYTES # 0.8 10^3/ul (0.8-2.9); LYMPHOCYTES % 2.5 % (15.0-51.0); MEAN CORPUSCULAR HEMOGLOBIN 27.7 pg (29.0-33.0); MEAN CORPUSCULAR HGB CONC 31.5 g/dl (32.0-37.0); MEAN CORPUSCULAR VOLUME 87.9 fl (82.0-101.0); MEAN PLATELET VOLUME 9.7 fl (7.4-10.4); MONOCYTES % 6.1 % (0.0-11.0); NEUTROPHIL # 29.3 10^3/ul (1.6-7.5); NEUTROPHILS % 89.3 % (39.0-77.0); PLATELET COUNT 397 10^3/UL (140-415); RED BLOOD COUNT 2.82 10^6/ul (4.20-5.40); RED CELL DISTRIBUTION WIDTH 16.6 % (11.5-14.5)
[2017-05-30 20:47] LABS: POSITIVE DIFF @See below
[2017-05-30 21:04] LABS: ANION GAP 20 (8-16); BLOOD UREA NITROGEN 49 mg/dl (7-20); CALCIUM 8.1 mg/dl (8.4-10.2); CARBON DIOXIDE 24 mmol/L (21-31); CHLORIDE 108 mmol/L (97-110); CREATININE 1.06 mg/dl (0.44-1.00); GLUCOSE 123 mg/dl (70-220); POTASSIUM 4.9 mmol/L (3.5-5.1); SODIUM 147 mmol/L (135-144)
[2017-05-31] MEDS: morphine 2 MG INJ IV ×5 (01:58→22:25)
[2017-05-31] MEDS: SOD CHLORIDE 0.9% 1,000 ML IV (04:18)
[2017-05-31] MEDS: PANTOPRAZOLE 40 MG INJ IV (05:54)
[2017-05-31] MEDS: metroNIDAZOLE 500 MG/NS (PMX) 100 ML IVPB ×3 (05:55→22:24)
[2017-05-31 06:01] LABS: ADD MAN DIFF? NO
[2017-05-31 06:08] LABS: ABNORMAL IP MESSAGE 1; BASOPHILS % 0.1 % (0.0-2.0); HEMATOCRIT 21.3 % (37.0-47.0); LYMPHOCYTES # 0.9 10^3/ul (0.8-2.9); LYMPHOCYTES % 3.2 % (15.0-51.0); MEAN CORPUSCULAR HEMOGLOBIN 28.3 pg (29.0-33.0); MEAN CORPUSCULAR HGB CONC 31.9 g/dl (32.0-37.0); MEAN CORPUSCULAR VOLUME 88.8 fl (82.0-101.0); MONOCYTE # 1.5 10^3/ul (0.3-0.9); MONOCYTES % 5.3 % (0.0-11.0); NEUTROPHIL # 25.9 10^3/ul (1.6-7.5); NEUTROPHILS % 90.2 % (39.0-77.0); PLATELET COUNT 373 10^3/UL (140-415); RED CELL DISTRIBUTION WIDTH 16.4 % (11.5-14.5)
[2017-05-31 06:08] LABS: WHITE BLOOD COUNT 28.7 10^3/ul (4.8-10.8)
[2017-05-31 06:35] LABS: HEMOGLOBIN 6.8 g/dl (12.0-16.0); PATH REVIEW? YES; POSITIVE DIFF @See below
[2017-05-31 07:19] LABS: ANION GAP 12 (8-16); BLOOD UREA NITROGEN 49 mg/dl (7-20); CALCIUM 7.7 mg/dl (8.4-10.2); CARBON DIOXIDE 27 mmol/L (21-31); CHLORIDE 114 mmol/L (97-110); CREATININE 0.78 mg/dl (0.44-1.00); GLUCOSE 128 mg/dl (70-220); MAGNESIUM 2.3 mg/dl (1.7-2.5); PHOSPHORUS 4.8 mg/dl (2.5-4.9); POTASSIUM 4.6 mmol/L (3.5-5.1); SODIUM 148 mmol/L (135-144)
[2017-05-31 07:28] LABS: IMMEDIATE SPIN CROSSMATCH 1 4
[2017-05-31 09:20] LABS: ANISOCYTOSIS 1+ (0-0); BAND NEUTROPHILS #M 4.8 10^3/ul (0.0-0.6); BAND NEUTROPHILS % (M) 17 % (0-4); BURR CELLS 2+ (0-0); EOSINOPHILS % (M) 4 % (0-7); HYPOCHROMASIA 1+ (0-0); LYMPHOCYTES #M 0.5 10^3/ul (0.8-2.9); LYMPHOCYTES % (M) 2 % (15-51); MONOCYTE #M 1.4 10^3/ul (0.3-0.9); MONOCYTES % (M) 5 % (0-11); PLATELET ESTIMATE NORMAL; POIKILOCYTOSIS 1+ (0-0); POLYCHROMASIA 3+ (0-0); REACTIVE LYMPHOCYTES #M 0.2 10^3/ul (0.0-0.0); REACTIVE LYMPHOCYTES% (M) 1 % (0-0); SEG NEUT #M 21.8 10^3/ul (1.6-7.5); SEGMENTED NEUTROPHILS (M) % 71 % (39-77); SMUDGE%M 2 % (0-0)
[2017-05-31] MEDS: CEFEPIME 1GM/50 ML (PMX) 50 ML IVPB (09:36)
[2017-05-31] MEDS: SOD CHLORIDE 0.45% 1,000 ML IV (09:37)
[2017-05-31] MEDS: ENOXAPARIN 30 MG/0.3 ML SYG SC (09:46)
[2017-05-31] MEDS: DEXTROSE 5%-0.45% NACL 1,000 ML IV ×2 (14:15→22:25)
[2017-05-31 15:01] LABS: CREATININE, RANDOM URINE 88 mg/dL (20-320); MICROALBUMIN 6.7 mg/dL; MICROALBUMIN/CREATININE RATIO 76 (<30)
[2017-05-31] MEDS: IPRATROPIUM (NEB) 0.5 MG/2.5 ML AMP HHN (16:02)
[2017-05-31] MEDS: LEVALBUTEROL (NEB) 0.63 MG/3 ML AMP HHN (16:02)
[2017-06-01] MEDS ORDERED: COLLAGENASE 30 GM TUBE TOP (04:00)
[2017-06-01 05:16] LABS: ADD MAN DIFF? NO; BASOPHILS % 0.2 % (0.0-2.0); EOSINOPHILS % 0.1 % (0.0-7.0); HEMATOCRIT 23.8 % (37.0-47.0); HEMOGLOBIN 8.1 g/dl (12.0-16.0); LYMPHOCYTES # 1.4 10^3/ul (0.8-2.9); LYMPHOCYTES % 8.1 % (15.0-51.0); MEAN CORPUSCULAR HEMOGLOBIN 28.7 pg (29.0-33.0); MEAN CORPUSCULAR VOLUME 84.4 fl (82.0-101.0); MEAN PLATELET VOLUME 9.4 fl (7.4-10.4); MONOCYTE # 0.7 10^3/ul (0.3-0.9); MONOCYTES % 4.1 % (0.0-11.0); NEUTROPHIL # 14.5 10^3/ul (1.6-7.5); PLATELET COUNT 266 10^3/UL (140-415); RED BLOOD COUNT 2.82 10^6/ul (4.20-5.40); RED CELL DISTRIBUTION WIDTH 15.9 % (11.5-14.5)
[2017-06-01 05:16] LABS: WHITE BLOOD COUNT 16.7 10^3/ul (4.8-10.8)
[2017-06-01] MEDS: DEXTROSE 5%-0.45% NACL 1,000 ML IV ×3 (06:00→17:39)
[2017-06-01 06:12] LABS: ANION GAP 10 (8-16); BLOOD UREA NITROGEN 26 mg/dl (7-20); CALCIUM 7.7 mg/dl (8.4-10.2); CARBON DIOXIDE 26 mmol/L (21-31); CHLORIDE 115 mmol/L (97-110); CREATININE 0.45 mg/dl (0.44-1.00); GLUCOSE 137 mg/dl (70-220); MAGNESIUM 2.3 mg/dl (1.7-2.5); PHOSPHORUS 1.7 mg/dl (2.5-4.9); POTASSIUM 3.1 mmol/L (3.5-5.1); SODIUM 148 mmol/L (135-144)
[2017-06-01] MEDS: metroNIDAZOLE 500 MG/NS (PMX) 100 ML IVPB ×3 (06:26→22:10)
[2017-06-01] MEDS: PANTOPRAZOLE 40 MG INJ IV (06:26)
[2017-06-01] MEDS: CEFEPIME 1GM/50 ML (PMX) 50 ML IVPB (08:40)
[2017-06-01] MEDS: COLLAGENASE 30 GM TUBE TOP (08:42)
[2017-06-01] MEDS: ENOXAPARIN 30 MG/0.3 ML SYG SC (08:42)
[2017-06-01] MEDS: BALSAM PERU/CASTOR OIL 60 GM TUBE TOP (12:00)
[2017-06-01] MEDS: IPRATROPIUM (NEB) 0.5 MG/2.5 ML AMP HHN ×2 (12:17→16:29)
[2017-06-01] MEDS: LEVALBUTEROL (NEB) 0.31 MG/3 ML AMP HHN ×2 (12:17→16:29)
[2017-06-01] MEDS: morphine 2 MG INJ IV (16:11)
[2017-06-01] MEDS: CEFEPIME 2GM/50 ML (PMX) 50 ML IVPB (20:50)
[2017-06-01] MEDS: POTASSIUM CHLORIDE 100 ML IVPB (23:34)
[2017-06-02] MEDS: POTASSIUM CHLORIDE 100 ML IVPB ×3 (01:13→17:17)
[2017-06-02] MEDS: PANTOPRAZOLE 40 MG INJ IV (05:55)
[2017-06-02] MEDS: DEXTROSE 5%-0.45% NACL 1,000 ML IV ×3 (05:55→21:10)
[2017-06-02] MEDS: metroNIDAZOLE 500 MG/NS (PMX) 100 ML IVPB ×3 (05:55→21:10)
[2017-06-02 08:27] LABS: ADD MAN DIFF? NO
[2017-06-02 08:32] LABS: BASOPHILS % 0.3 % (0.0-2.0); EOSINOPHILS # 0.1 10^3/ul (0.0-0.5); HEMATOCRIT 26.7 % (37.0-47.0); HEMOGLOBIN 8.7 g/dl (12.0-16.0); LYMPHOCYTES # 1.4 10^3/ul (0.8-2.9); LYMPHOCYTES % 11.9 % (15.0-51.0); MEAN CORPUSCULAR HEMOGLOBIN 28.2 pg (29.0-33.0); MEAN CORPUSCULAR HGB CONC 32.6 g/dl (32.0-37.0); MEAN CORPUSCULAR VOLUME 86.7 fl (82.0-101.0); MEAN PLATELET VOLUME 10.1 fl (7.4-10.4); MONOCYTE # 0.6 10^3/ul (0.3-0.9); MONOCYTES % 4.6 % (0.0-11.0); NEUTROPHIL # 9.8 10^3/ul (1.6-7.5); NEUTROPHILS % 81.8 % (39.0-77.0); PLATELET COUNT 285 10^3/UL (140-415); RED BLOOD COUNT 3.08 10^6/ul (4.20-5.40)
[2017-06-02] MEDS: CEFEPIME 2GM/50 ML (PMX) 50 ML IVPB ×2 (08:44→20:47)
[2017-06-02] MEDS: COLLAGENASE 30 GM TUBE TOP (08:45)
[2017-06-02] MEDS: BALSAM PERU/CASTOR OIL 60 GM TUBE TOP (08:48)
[2017-06-02 08:50] LABS: ANION GAP 11 (8-16); BLOOD UREA NITROGEN 10 mg/dl (7-20); CALCIUM 7.7 mg/dl (8.4-10.2); CARBON DIOXIDE 25 mmol/L (21-31); CHLORIDE 111 mmol/L (97-110); CREATININE 0.35 mg/dl (0.44-1.00); GLUCOSE 103 mg/dl (70-220); POTASSIUM 3.3 mmol/L (3.5-5.1); SODIUM 144 mmol/L (135-144)
[2017-06-02] MEDS: ENOXAPARIN 30 MG/0.3 ML SYG SC (08:50)
[2017-06-02] MEDS: IPRATROPIUM (NEB) 0.5 MG/2.5 ML AMP HHN ×2 (14:51→20:17)
[2017-06-02] MEDS: LEVALBUTEROL (NEB) 0.31 MG/3 ML AMP HHN ×2 (14:52→20:17)
[2017-06-03] MEDS: IPRATROPIUM (NEB) 0.5 MG/2.5 ML AMP HHN ×2 (02:05→04:40)
[2017-06-03] MEDS: LEVALBUTEROL (NEB) 0.63 MG/3 ML AMP HHN (02:05)
[2017-06-03] MEDS: morphine 2 MG INJ IV (03:50)
[2017-06-03] MEDS: LEVALBUTEROL (NEB) 0.31 MG/3 ML AMP HHN (04:40)
[2017-06-03] MEDS: PANTOPRAZOLE 40 MG INJ IV (05:08)
[2017-06-03] MEDS: metroNIDAZOLE 500 MG/NS (PMX) 100 ML IVPB ×2 (05:08→13:31)
[2017-06-03] MEDS: DEXTROSE 5%-0.45% NACL 1,000 ML IV ×3 (06:12→21:33)
[2017-06-03 08:32] LABS: ADD MAN DIFF? NO
[2017-06-03 08:35] LABS: BASOPHILS % 0.3 % (0.0-2.0); EOSINOPHILS # 0.2 10^3/ul (0.0-0.5); EOSINOPHILS % 2.1 % (0.0-7.0); HEMATOCRIT 27.1 % (37.0-47.0); HEMOGLOBIN 8.8 g/dl (12.0-16.0); LYMPHOCYTES # 1.7 10^3/ul (0.8-2.9); LYMPHOCYTES % 17.4 % (15.0-51.0); MEAN CORPUSCULAR HEMOGLOBIN 28.1 pg (29.0-33.0); MEAN CORPUSCULAR HGB CONC 32.5 g/dl (32.0-37.0); MEAN CORPUSCULAR VOLUME 86.6 fl (82.0-101.0); MEAN PLATELET VOLUME 9.7 fl (7.4-10.4); MONOCYTE # 0.9 10^3/ul (0.3-0.9); NEUTROPHIL # 6.9 10^3/ul (1.6-7.5); NEUTROPHILS % 70.6 % (39.0-77.0); PLATELET COUNT 346 10^3/UL (140-415); RED BLOOD COUNT 3.13 10^6/ul (4.20-5.40)
[2017-06-03 08:35] LABS: WHITE BLOOD COUNT 9.7 10^3/ul (4.8-10.8)
[2017-06-03 08:55] LABS: ANION GAP 8 (8-16); BLOOD UREA NITROGEN 5 mg/dl (7-20); CALCIUM 7.3 mg/dl (8.4-10.2); CARBON DIOXIDE 29 mmol/L (21-31); CHLORIDE 109 mmol/L (97-110); CREATININE 0.31 mg/dl (0.44-1.00); GLUCOSE 106 mg/dl (70-220); MAGNESIUM 1.8 mg/dl (1.7-2.5); PHOSPHORUS 1.7 mg/dl (2.5-4.9); SODIUM 144 mmol/L (135-144)
[2017-06-03 09:05] LABS: POTASSIUM 2.3 mmol/L (3.5-5.1)
[2017-06-03] MEDS ORDERED: POTASSIUM CHLORIDE 100 ML IVPB (09:30)
[2017-06-03] MEDS: CEFEPIME 2GM/50 ML (PMX) 50 ML IVPB ×2 (09:46→21:32)
[2017-06-03] MEDS: COLLAGENASE 30 GM TUBE TOP (09:46)
[2017-06-03] MEDS: BALSAM PERU/CASTOR OIL 60 GM TUBE TOP (09:47)
[2017-06-03] MEDS: ENOXAPARIN 30 MG/0.3 ML SYG SC (09:50)
[2017-06-03] MEDS: MAGNESIUM SULFATE 2 GM/50 ML 50 ML IVPB (10:38)
[2017-06-03] MEDS: POTASSIUM CHLORIDE 250 ML IVPB ×2 (10:59→16:02)
[2017-06-03 15:37] LABS: ANION GAP 9 (8-16); BLOOD UREA NITROGEN 5 mg/dl (7-20); CALCIUM 7.4 mg/dl (8.4-10.2); CARBON DIOXIDE 28 mmol/L (21-31); CHLORIDE 109 mmol/L (97-110); CREATININE 0.29 mg/dl (0.44-1.00); GLUCOSE 104 mg/dl (70-220); SODIUM 143 mmol/L (135-144)
[2017-06-03 15:38] LABS: POTASSIUM 2.8 mmol/L (3.5-5.1)
[2017-06-04] MEDS: morphine 2 MG INJ IV ×2 (03:34→22:26)
[2017-06-04] MEDS: DEXTROSE 5%-0.45% NACL 1,000 ML IV ×3 (06:43→22:26)
[2017-06-04] MEDS: PANTOPRAZOLE 40 MG INJ IV (06:43)
[2017-06-04 07:01] LABS: ADD MAN DIFF? NO
[2017-06-04 07:02] LABS: WHITE BLOOD COUNT 10.8 10^3/ul (4.8-10.8)
[2017-06-04 07:02] LABS: BASOPHIL # 0.1 10^3/ul (0.0-0.1); BASOPHILS % 0.5 % (0.0-2.0); EOSINOPHILS # 0.4 10^3/ul (0.0-0.5); EOSINOPHILS % 3.4 % (0.0-7.0); LYMPHOCYTES # 1.7 10^3/ul (0.8-2.9); LYMPHOCYTES % 15.4 % (15.0-51.0); MEAN CORPUSCULAR HEMOGLOBIN 28.8 pg (29.0-33.0); MEAN CORPUSCULAR HGB CONC 33.3 g/dl (32.0-37.0); MEAN CORPUSCULAR VOLUME 86.3 fl (82.0-101.0); MEAN PLATELET VOLUME 9.5 fl (7.4-10.4); MONOCYTE # 0.8 10^3/ul (0.3-0.9); MONOCYTES % 7.7 % (0.0-11.0); NEUTROPHIL # 7.8 10^3/ul (1.6-7.5); NEUTROPHILS % 72.3 % (39.0-77.0); PLATELET COUNT 400 10^3/UL (140-415); RED BLOOD COUNT 3.13 10^6/ul (4.20-5.40); RED CELL DISTRIBUTION WIDTH 16.4 % (11.5-14.5)
[2017-06-04 07:05] LABS: ANION GAP 6 (8-16); BLOOD UREA NITROGEN 3 mg/dl (7-20); CALCIUM 7.2 mg/dl (8.4-10.2); CARBON DIOXIDE 27 mmol/L (21-31); CHLORIDE 113 mmol/L (97-110); CREATININE 0.27 mg/dl (0.44-1.00); GLUCOSE 123 mg/dl (70-220); SODIUM 143 mmol/L (135-144)
[2017-06-04 07:13] LABS: POTASSIUM 2.9 mmol/L (3.5-5.1)
[2017-06-04] MEDS: CEFEPIME 2GM/50 ML (PMX) 50 ML IVPB ×2 (08:08→20:19)
[2017-06-04] MEDS: BALSAM PERU/CASTOR OIL 60 GM TUBE TOP (08:09)
[2017-06-04] MEDS: COLLAGENASE 30 GM TUBE TOP (08:09)
[2017-06-04] MEDS: ENOXAPARIN 30 MG/0.3 ML SYG SC (08:12)
[2017-06-04] MEDS: POTASSIUM CHLORIDE 100 ML IVPB ×4 (08:40→14:38)
[2017-06-04] MEDS ORDERED: POTASSIUM CHLORIDE 100 ML IVPB (11:00)
[2017-06-05] MEDS: PANTOPRAZOLE 40 MG INJ IV (05:35)
[2017-06-05] MEDS: DEXTROSE 5%-0.45% NACL 1,000 ML IV (05:35)
[2017-06-05 07:47] LABS: ADD MAN DIFF? NO
[2017-06-05 07:59] LABS: BASOPHIL # 0.1 10^3/ul (0.0-0.1); BASOPHILS % 0.5 % (0.0-2.0); EOSINOPHILS # 0.4 10^3/ul (0.0-0.5); EOSINOPHILS % 3.5 % (0.0-7.0); HEMATOCRIT 28.1 % (37.0-47.0); HEMOGLOBIN 9.1 g/dl (12.0-16.0); LYMPHOCYTES # 1.5 10^3/ul (0.8-2.9); LYMPHOCYTES % 13.9 % (15.0-51.0); MEAN CORPUSCULAR HEMOGLOBIN 27.9 pg (29.0-33.0); MEAN CORPUSCULAR HGB CONC 32.4 g/dl (32.0-37.0); MEAN CORPUSCULAR VOLUME 86.2 fl (82.0-101.0); MEAN PLATELET VOLUME 9.2 fl (7.4-10.4); MONOCYTE # 0.8 10^3/ul (0.3-0.9); MONOCYTES % 7.3 % (0.0-11.0); NEUTROPHIL # 8.1 10^3/ul (1.6-7.5); NEUTROPHILS % 73.7 % (39.0-77.0); PLATELET COUNT 503 10^3/UL (140-415); RED BLOOD COUNT 3.26 10^6/ul (4.20-5.40); RED CELL DISTRIBUTION WIDTH 16.6 % (11.5-14.5)
[2017-06-05] MEDS: COLLAGENASE 30 GM TUBE TOP (08:20)
[2017-06-05] MEDS: BALSAM PERU/CASTOR OIL 60 GM TUBE TOP (08:20)
[2017-06-05 08:24] LABS: ALANINE AMINOTRANSFERASE 17 IU/L (13-69); ALBUMIN 2.1 g/dl (3.3-4.9); ALBUMIN/GLOBULIN RATIO 0.67; ALKALINE PHOSPHATASE 64 IU/L (42-121); ANION GAP 9 (8-16); ASPARTATE AMINO TRANSFERASE 15 IU/L (15-46); BILIRUBIN,INDIRECT 0.1 mg/dl (0-1.1); BILIRUBIN,TOTAL 0.1 mg/dl (0.2-1.3); BLOOD UREA NITROGEN 3 mg/dl (7-20); CALCIUM 7.6 mg/dl (8.4-10.2); CARBON DIOXIDE 28 mmol/L (21-31); CHLORIDE 110 mmol/L (97-110); CREATININE 0.27 mg/dl (0.44-1.00); GLUCOSE 116 mg/dl (70-220); POTASSIUM 3.5 mmol/L (3.5-5.1); SODIUM 143 mmol/L (135-144); TOTAL PROTEIN 5.2 g/dl (6.1-8.1)
[2017-06-05] MEDS: D5W-0.45 NACL + KCL 30 MEQ 1,000 ML IV ×2 (08:30→23:23)
[2017-06-05] MEDS: ENOXAPARIN 30 MG/0.3 ML SYG SC (08:35)
[2017-06-05 08:39] LABS: MAGNESIUM 1.9 mg/dl (1.7-2.5)
[2017-06-05] MEDS: morphine 2 MG INJ IV ×2 (10:36→21:31)
[2017-06-05] MEDS: NYSTATIN SUSP 5 ML CUP PO ×2 (12:54→20:39)
[2017-06-05] MEDS: LEVALBUTEROL (NEB) 0.63 MG/3 ML AMP HHN (21:27)
[2017-06-05] MEDS: IPRATROPIUM (NEB) 0.5 MG/2.5 ML AMP HHN (21:27)
[2017-06-06] MEDS: PANTOPRAZOLE 40 MG INJ IV (06:41)
[2017-06-06 07:47] LABS: ADD MAN DIFF? NO
[2017-06-06 07:56] LABS: BASOPHIL # 0.1 10^3/ul (0.0-0.1); BASOPHILS % 0.4 % (0.0-2.0); EOSINOPHILS # 0.3 10^3/ul (0.0-0.5); EOSINOPHILS % 2.7 % (0.0-7.0); HEMATOCRIT 29.2 % (37.0-47.0); HEMOGLOBIN 9.3 g/dl (12.0-16.0); LYMPHOCYTES # 1.8 10^3/ul (0.8-2.9); LYMPHOCYTES % 15.6 % (15.0-51.0); MEAN CORPUSCULAR HEMOGLOBIN 27.8 pg (29.0-33.0); MEAN CORPUSCULAR HGB CONC 31.8 g/dl (32.0-37.0); MEAN CORPUSCULAR VOLUME 87.4 fl (82.0-101.0); MEAN PLATELET VOLUME 9.4 fl (7.4-10.4); MONOCYTE # 0.8 10^3/ul (0.3-0.9); MONOCYTES % 7.3 % (0.0-11.0); NEUTROPHIL # 8.2 10^3/ul (1.6-7.5); NEUTROPHILS % 73.1 % (39.0-77.0); PLATELET COUNT 587 10^3/UL (140-415); RED BLOOD COUNT 3.34 10^6/ul (4.20-5.40)
[2017-06-06 07:56] LABS: WHITE BLOOD COUNT 11.2 10^3/ul (4.8-10.8)
[2017-06-06 08:16] LABS: ANION GAP 8 (8-16); BLOOD UREA NITROGEN 2 mg/dl (7-20); CARBON DIOXIDE 28 mmol/L (21-31); CHLORIDE 110 mmol/L (97-110); CREATININE 0.27 mg/dl (0.44-1.00); GLUCOSE 105 mg/dl (70-220); POTASSIUM 3.8 mmol/L (3.5-5.1); SODIUM 142 mmol/L (135-144)
[2017-06-06] MEDS: COLLAGENASE 30 GM TUBE TOP (08:49)
[2017-06-06] MEDS: BALSAM PERU/CASTOR OIL 60 GM TUBE TOP (08:49)
[2017-06-06] MEDS: NYSTATIN SUSP 5 ML CUP PO ×3 (08:49→21:20)
[2017-06-06] MEDS: ENOXAPARIN 30 MG/0.3 ML SYG SC (08:52)
[2017-06-06] MEDS ORDERED: COLLAGENASE 5 GM (UD JAR) TOP (09:30)
[2017-06-06] MEDS: COLLAGENASE 5 GM (UD JAR) TOP ×2 (09:30→18:20)
[2017-06-06] MEDS: D5W-0.45 NACL + KCL 30 MEQ 1,000 ML IV ×2 (11:04→17:49)
[2017-06-06] MEDS: LEVALBUTEROL (NEB) 0.63 MG/3 ML AMP HHN ×2 (12:56→21:29)
[2017-06-06] MEDS: IPRATROPIUM (NEB) 0.5 MG/2.5 ML AMP HHN ×2 (12:56→21:29)
[2017-06-06] MEDS: TOBRAMYCIN IVPB (14:24)
[2017-06-06] MEDS: DEXTROSE 5% IVPB (14:24)
[2017-06-06 14:26] LABS: ADD UMIC NO; UR ASCORBIC ACID NEGATIVE (NEGATIVE); UR BILIRUBIN (Dip) NEGATIVE (NEGATIVE); UR BLOOD (Dip) NEGATIVE (NEGATIVE); UR CLARITY CLEAR (CLEAR); UR COLOR STRAW (YELLOW); UR GLUCOSE (Dip) 1+ mg/dL (NEGATIVE); UR KETONES (Dip) NEGATIVE (NEGATIVE); UR LEUKOCYTE ESTERASE (Dip) NEGATIVE Leu/ul (NEGATIVE); UR NITRITE (Dip) NEGATIVE (NEGATIVE); UR SPECIFIC GRAVITY (Dip) 1.005 (1.003-1.030); UR TOTAL PROTEIN (Dip) NEGATIVE (NEGATIVE); UR UROBILINOGEN (Dip) NEGATIVE (NEGATIVE)
[2017-06-06] MEDS ORDERED: TOBRAMYCIN IV PER PHARMACY XX (15:00)
[2017-06-06] MEDS: morphine 2 MG INJ IV (21:28)
[2017-06-07] MEDS: D5W-0.45 NACL + KCL 30 MEQ 1,000 ML IV ×3 (00:24→13:44)
[2017-06-07] MEDS: PANTOPRAZOLE 40 MG INJ IV (06:50)
[2017-06-07 07:33] LABS: ADD MAN DIFF? NO
[2017-06-07 07:36] LABS: BASOPHIL # 0.1 10^3/ul (0.0-0.1); BASOPHILS % 0.5 % (0.0-2.0); EOSINOPHILS # 0.3 10^3/ul (0.0-0.5); EOSINOPHILS % 2.9 % (0.0-7.0); HEMATOCRIT 28.7 % (37.0-47.0); HEMOGLOBIN 9.3 g/dl (12.0-16.0); LYMPHOCYTES # 1.7 10^3/ul (0.8-2.9); LYMPHOCYTES % 16.4 % (15.0-51.0); MEAN CORPUSCULAR HEMOGLOBIN 28.4 pg (29.0-33.0); MEAN CORPUSCULAR HGB CONC 32.4 g/dl (32.0-37.0); MEAN CORPUSCULAR VOLUME 87.5 fl (82.0-101.0); MEAN PLATELET VOLUME 9.3 fl (7.4-10.4); MONOCYTE # 0.7 10^3/ul (0.3-0.9); MONOCYTES % 6.7 % (0.0-11.0); NEUTROPHIL # 7.4 10^3/ul (1.6-7.5); NEUTROPHILS % 72.9 % (39.0-77.0); PLATELET COUNT 615 10^3/UL (140-415); RED BLOOD COUNT 3.28 10^6/ul (4.20-5.40); RED CELL DISTRIBUTION WIDTH 17.1 % (11.5-14.5)
[2017-06-07 07:36] LABS: WHITE BLOOD COUNT 10.1 10^3/ul (4.8-10.8)
[2017-06-07 08:08] LABS: ANION GAP 8 (8-16); BLOOD UREA NITROGEN 4 mg/dl (7-20); CARBON DIOXIDE 31 mmol/L (21-31); CHLORIDE 108 mmol/L (97-110); CREATININE 0.36 mg/dl (0.44-1.00); GLUCOSE 106 mg/dl (70-220); MAGNESIUM 1.8 mg/dl (1.7-2.5); PHOSPHORUS 3.2 mg/dl (2.5-4.9); POTASSIUM 3.6 mmol/L (3.5-5.1); SODIUM 143 mmol/L (135-144)
[2017-06-07] MEDS: COLLAGENASE 5 GM (UD JAR) TOP (09:11)
[2017-06-07] MEDS: NYSTATIN SUSP 5 ML CUP PO ×3 (09:11→21:53)
[2017-06-07] MEDS: BALSAM PERU/CASTOR OIL 60 GM TUBE TOP (09:11)
[2017-06-07] MEDS: ENOXAPARIN 30 MG/0.3 ML SYG SC (09:12)
[2017-06-07 13:31] LABS: ADD MAN DIFF? NO
[2017-06-07 13:34] LABS: BASOPHIL # 0.1 10^3/ul (0.0-0.1); BASOPHILS % 0.5 % (0.0-2.0); EOSINOPHILS # 0.2 10^3/ul (0.0-0.5); EOSINOPHILS % 1.8 % (0.0-7.0); HEMOGLOBIN 9.2 g/dl (12.0-16.0); LYMPHOCYTES # 1.8 10^3/ul (0.8-2.9); LYMPHOCYTES % 16.7 % (15.0-51.0); MEAN CORPUSCULAR HGB CONC 31.7 g/dl (32.0-37.0); MEAN CORPUSCULAR VOLUME 88.1 fl (82.0-101.0); MEAN PLATELET VOLUME 10.2 fl (7.4-10.4); MONOCYTE # 0.6 10^3/ul (0.3-0.9); MONOCYTES % 5.4 % (0.0-11.0); NEUTROPHILS % 75.1 % (39.0-77.0); PLATELET COUNT 569 10^3/UL (140-415); RED BLOOD COUNT 3.29 10^6/ul (4.20-5.40); RED CELL DISTRIBUTION WIDTH 17.2 % (11.5-14.5)
[2017-06-07 13:34] LABS: WHITE BLOOD COUNT 10.6 10^3/ul (4.8-10.8)
[2017-06-07 13:52] LABS: ALANINE AMINOTRANSFERASE 21 IU/L (13-69); ALBUMIN 2.6 g/dl (3.3-4.9); ALKALINE PHOSPHATASE 85 IU/L (42-121); ANION GAP 12 (8-16); ASPARTATE AMINO TRANSFERASE 36 IU/L (15-46); BLOOD UREA NITROGEN 5 mg/dl (7-20); CARBON DIOXIDE 28 mmol/L (21-31); CHLORIDE 103 mmol/L (97-110); CREATININE 0.35 mg/dl (0.44-1.00); GLUCOSE 95 mg/dl (70-220); POTASSIUM 3.7 mmol/L (3.5-5.1); SODIUM 139 mmol/L (135-144); TOTAL PROTEIN 6.2 g/dl (6.1-8.1)
[2017-06-07 13:53] LABS: ALBUMIN/GLOBULIN RATIO 0.72
[2017-06-07] MEDS: LEVALBUTEROL (NEB) 0.63 MG/3 ML AMP HHN (20:14)
[2017-06-08] MEDS: D5W-0.45 NACL + KCL 30 MEQ 1,000 ML IV ×3 (02:00→11:04)
[2017-06-08] MEDS: PANTOPRAZOLE 40 MG INJ IV (05:21)
[2017-06-08 07:06] LABS: ADD MAN DIFF? NO
[2017-06-08 07:27] LABS: BASOPHIL # 0.1 10^3/ul (0.0-0.1); BASOPHILS % 0.6 % (0.0-2.0); EOSINOPHILS # 0.3 10^3/ul (0.0-0.5); HEMATOCRIT 31.5 % (37.0-47.0); HEMOGLOBIN 10.1 g/dl (12.0-16.0); LYMPHOCYTES # 1.8 10^3/ul (0.8-2.9); MEAN CORPUSCULAR HGB CONC 32.1 g/dl (32.0-37.0); MEAN CORPUSCULAR VOLUME 87.3 fl (82.0-101.0); MEAN PLATELET VOLUME 9.8 fl (7.4-10.4); MONOCYTE # 0.6 10^3/ul (0.3-0.9); MONOCYTES % 6.1 % (0.0-11.0); NEUTROPHIL # 6.7 10^3/ul (1.6-7.5); NEUTROPHILS % 70.9 % (39.0-77.0); RED BLOOD COUNT 3.61 10^6/ul (4.20-5.40); RED CELL DISTRIBUTION WIDTH 17.2 % (11.5-14.5)
[2017-06-08 07:27] LABS: WHITE BLOOD COUNT 9.4 10^3/ul (4.8-10.8)
[2017-06-08 07:34] LABS: ANION GAP 12 (8-16); BLOOD UREA NITROGEN 5 mg/dl (7-20); CALCIUM 8.3 mg/dl (8.4-10.2); CARBON DIOXIDE 29 mmol/L (21-31); CHLORIDE 104 mmol/L (97-110); CREATININE 0.36 mg/dl (0.44-1.00); GLUCOSE 116 mg/dl (70-220); MAGNESIUM 1.8 mg/dl (1.7-2.5); PHOSPHORUS 3.5 mg/dl (2.5-4.9); POTASSIUM 3.5 mmol/L (3.5-5.1); SODIUM 141 mmol/L (135-144)
[2017-06-08 07:37] LABS: PLATELET COUNT 668 10^3/UL (140-415)
[2017-06-08] MEDS: COLLAGENASE 5 GM (UD JAR) TOP (08:59)
[2017-06-08] MEDS: ENOXAPARIN 30 MG/0.3 ML SYG SC (09:00)
[2017-06-08] MEDS: BALSAM PERU/CASTOR OIL 60 GM TUBE TOP (09:05)
[2017-06-08] MEDS: NYSTATIN SUSP 5 ML CUP PO ×3 (09:05→22:25)
[2017-06-08] MEDS: IPRATROPIUM (NEB) 0.5 MG/2.5 ML AMP HHN (11:23)
[2017-06-08] MEDS: LEVALBUTEROL (NEB) 0.63 MG/3 ML AMP HHN (11:24)
[2017-06-08] MEDS: TOBRAMYCIN IVPB (13:59)
[2017-06-08] MEDS: DEXTROSE 5% IVPB (13:59)
[2017-06-09] MEDS: PANTOPRAZOLE 40 MG INJ IV (06:09)
[2017-06-09 06:30] LABS: ADD MAN DIFF? NO
[2017-06-09 06:39] LABS: WHITE BLOOD COUNT 9.3 10^3/ul (4.8-10.8)
[2017-06-09 06:40] LABS: BASOPHIL # 0.1 10^3/ul (0.0-0.1); BASOPHILS % 0.8 % (0.0-2.0); EOSINOPHILS # 0.3 10^3/ul (0.0-0.5); EOSINOPHILS % 3.3 % (0.0-7.0); HEMATOCRIT 30.5 % (37.0-47.0); HEMOGLOBIN 9.6 g/dl (12.0-16.0); MEAN CORPUSCULAR HEMOGLOBIN 27.9 pg (29.0-33.0); MEAN CORPUSCULAR HGB CONC 31.5 g/dl (32.0-37.0); MEAN CORPUSCULAR VOLUME 88.7 fl (82.0-101.0); MONOCYTE # 0.5 10^3/ul (0.3-0.9); MONOCYTES % 5.5 % (0.0-11.0); NEUTROPHIL # 6.4 10^3/ul (1.6-7.5); PLATELET COUNT 761 10^3/UL (140-415); RED BLOOD COUNT 3.44 10^6/ul (4.20-5.40); RED CELL DISTRIBUTION WIDTH 17.1 % (11.5-14.5)
[2017-06-09 07:02] LABS: ANION GAP 13 (8-16); BLOOD UREA NITROGEN 7 mg/dl (7-20); CALCIUM 8.4 mg/dl (8.4-10.2); CARBON DIOXIDE 29 mmol/L (21-31); CHLORIDE 105 mmol/L (97-110); CREATININE 0.34 mg/dl (0.44-1.00); GLUCOSE 105 mg/dl (70-220); MAGNESIUM 1.8 mg/dl (1.7-2.5); PHOSPHORUS 3.6 mg/dl (2.5-4.9); POTASSIUM 3.1 mmol/L (3.5-5.1); SODIUM 144 mmol/L (135-144)
[2017-06-09] MEDS: BALSAM PERU/CASTOR OIL 60 GM TUBE TOP (09:00)
[2017-06-09] MEDS: POTASSIUM CHLORIDE (SR) 20 MEQ TAB PO (09:06)
[2017-06-09] MEDS: COLLAGENASE 5 GM (UD JAR) TOP (09:06)
[2017-06-09] MEDS: NYSTATIN SUSP 5 ML CUP PO ×3 (09:06→21:20)
[2017-06-09] MEDS: ENOXAPARIN 30 MG/0.3 ML SYG SC (09:07)
[2017-06-09] MEDS: IPRATROPIUM (NEB) 0.5 MG/2.5 ML AMP HHN (10:27)
[2017-06-09] MEDS: LEVALBUTEROL (NEB) 0.31 MG/3 ML AMP HHN ×2 (10:27→20:28)
[2017-06-09] MEDS: D5W-0.45 NACL + KCL 30 MEQ 1,000 ML IV (11:45)
[2017-06-10] MEDS: PANTOPRAZOLE 40 MG INJ IV (05:32)
[2017-06-10 06:36] LABS: ANION GAP 8 (8-16); BLOOD UREA NITROGEN 13 mg/dl (7-20); CALCIUM 8.7 mg/dl (8.4-10.2); CARBON DIOXIDE 32 mmol/L (21-31); CHLORIDE 109 mmol/L (97-110); CREATININE 0.38 mg/dl (0.44-1.00); GLUCOSE 102 mg/dl (70-220); MAGNESIUM 1.7 mg/dl (1.7-2.5); PHOSPHORUS 3.7 mg/dl (2.5-4.9); POTASSIUM 3.9 mmol/L (3.5-5.1); SODIUM 145 mmol/L (135-144)
[2017-06-10] MEDS: BALSAM PERU/CASTOR OIL 60 GM TUBE TOP (09:39)
[2017-06-10] MEDS: NYSTATIN SUSP 5 ML CUP PO ×3 (09:39→20:53)
[2017-06-10] MEDS: ENOXAPARIN 30 MG/0.3 ML SYG SC (09:45)
[2017-06-10] MEDS: D5W-0.45 NACL + KCL 30 MEQ 1,000 ML IV (11:04)
[2017-06-10] MEDS: COLLAGENASE 5 GM (UD JAR) TOP (13:07)
[2017-06-10] MEDS: IPRATROPIUM (NEB) 0.5 MG/2.5 ML AMP HHN (19:11)
[2017-06-10] MEDS: LEVALBUTEROL (NEB) 0.63 MG/3 ML AMP HHN (19:11)
[2017-06-11] MEDS: PANTOPRAZOLE 40 MG INJ IV (05:08)
[2017-06-11 05:31] LABS: ADD MAN DIFF? NO
[2017-06-11 05:41] LABS: WHITE BLOOD COUNT 9.9 10^3/ul (4.8-10.8)
[2017-06-11 05:41] LABS: BASOPHIL # 0.1 10^3/ul (0.0-0.1); EOSINOPHILS # 0.4 10^3/ul (0.0-0.5); EOSINOPHILS % 3.6 % (0.0-7.0); HEMOGLOBIN 9.7 g/dl (12.0-16.0); LYMPHOCYTES # 1.8 10^3/ul (0.8-2.9); LYMPHOCYTES % 17.9 % (15.0-51.0); MEAN CORPUSCULAR HEMOGLOBIN 28.5 pg (29.0-33.0); MEAN CORPUSCULAR HGB CONC 32.3 g/dl (32.0-37.0); MEAN CORPUSCULAR VOLUME 88.2 fl (82.0-101.0); MEAN PLATELET VOLUME 9.1 fl (7.4-10.4); MONOCYTE # 0.6 10^3/ul (0.3-0.9); MONOCYTES % 5.6 % (0.0-11.0); NEUTROPHIL # 7.1 10^3/ul (1.6-7.5); NEUTROPHILS % 71.6 % (39.0-77.0); PLATELET COUNT 736 10^3/UL (140-415); RED CELL DISTRIBUTION WIDTH 17.2 % (11.5-14.5)
[2017-06-11 06:09] LABS: ANION GAP 12 (8-16); BLOOD UREA NITROGEN 14 mg/dl (7-20); CALCIUM 8.8 mg/dl (8.4-10.2); CARBON DIOXIDE 31 mmol/L (21-31); CHLORIDE 107 mmol/L (97-110); CREATININE 0.32 mg/dl (0.44-1.00); GLUCOSE 94 mg/dl (70-220); MAGNESIUM 1.7 mg/dl (1.7-2.5); PHOSPHORUS 4.3 mg/dl (2.5-4.9); POTASSIUM 3.6 mmol/L (3.5-5.1); SODIUM 146 mmol/L (135-144)
[2017-06-11] MEDS: COLLAGENASE 5 GM (UD JAR) TOP (09:24)
[2017-06-11] MEDS: NYSTATIN SUSP 5 ML CUP PO ×3 (09:24→20:54)
[2017-06-11] MEDS: ENOXAPARIN 30 MG/0.3 ML SYG SC (09:29)
[2017-06-11] MEDS: BALSAM PERU/CASTOR OIL 60 GM TUBE TOP (09:33)
[2017-06-11] MEDS: D5W-0.45 NACL + KCL 30 MEQ 1,000 ML IV (11:04)
[2017-06-12] MEDS: PANTOPRAZOLE 40 MG INJ IV (05:03)
[2017-06-12 07:59] LABS: ANION GAP 10 (8-16); BLOOD UREA NITROGEN 14 mg/dl (7-20); CALCIUM 8.8 mg/dl (8.4-10.2); CARBON DIOXIDE 31 mmol/L (21-31); CHLORIDE 106 mmol/L (97-110); CREATININE 0.35 mg/dl (0.44-1.00); GLUCOSE 97 mg/dl (70-220); MAGNESIUM 1.7 mg/dl (1.7-2.5); PHOSPHORUS 4.3 mg/dl (2.5-4.9); POTASSIUM 3.3 mmol/L (3.5-5.1); SODIUM 144 mmol/L (135-144)
[2017-06-12] MEDS: NYSTATIN SUSP 5 ML CUP PO ×3 (08:19→20:53)
[2017-06-12] MEDS: ENOXAPARIN 30 MG/0.3 ML SYG SC (08:21)
[2017-06-12] MEDS: POTASSIUM CHLORIDE (SR) 20 MEQ TAB PO (08:22)
[2017-06-12] MEDS: BALSAM PERU/CASTOR OIL 60 GM TUBE TOP (08:26)
[2017-06-12] MEDS: COLLAGENASE 5 GM (UD JAR) TOP (08:27)
[2017-06-12] MEDS: D5W-0.45 NACL + KCL 30 MEQ 1,000 ML IV (11:04)
[2017-06-12] MEDS: IPRATROPIUM (NEB) 0.5 MG/2.5 ML AMP HHN (11:45)
[2017-06-12] MEDS: LEVALBUTEROL (NEB) 0.63 MG/3 ML AMP HHN ×2 (11:45→21:07)
[2017-06-13 05:41] LABS: ADD MAN DIFF? NO
[2017-06-13 05:53] LABS: BASOPHIL # 0.1 10^3/ul (0.0-0.1); BASOPHILS % 1.2 % (0.0-2.0); EOSINOPHILS # 0.3 10^3/ul (0.0-0.5); EOSINOPHILS % 2.6 % (0.0-7.0); HEMATOCRIT 30.9 % (37.0-47.0); HEMOGLOBIN 9.6 g/dl (12.0-16.0); LYMPHOCYTES # 1.9 10^3/ul (0.8-2.9); LYMPHOCYTES % 19.1 % (15.0-51.0); MEAN CORPUSCULAR HEMOGLOBIN 27.7 pg (29.0-33.0); MEAN CORPUSCULAR HGB CONC 31.1 g/dl (32.0-37.0); MEAN PLATELET VOLUME 9.1 fl (7.4-10.4); MONOCYTE # 0.5 10^3/ul (0.3-0.9); MONOCYTES % 5.1 % (0.0-11.0); NEUTROPHIL # 7.2 10^3/ul (1.6-7.5); NEUTROPHILS % 71.5 % (39.0-77.0); PLATELET COUNT 691 10^3/UL (140-415); RED BLOOD COUNT 3.47 10^6/ul (4.20-5.40); RED CELL DISTRIBUTION WIDTH 17.6 % (11.5-14.5)
[2017-06-13 05:53] LABS: WHITE BLOOD COUNT 10.1 10^3/ul (4.8-10.8)
[2017-06-13] MEDS: PANTOPRAZOLE 40 MG INJ IV (06:00)
[2017-06-13 06:17] LABS: ANION GAP 12 (8-16); BLOOD UREA NITROGEN 12 mg/dl (7-20); CALCIUM 9.1 mg/dl (8.4-10.2); CARBON DIOXIDE 30 mmol/L (21-31); CHLORIDE 105 mmol/L (97-110); CREATININE 0.36 mg/dl (0.44-1.00); GLUCOSE 99 mg/dl (70-220); POTASSIUM 3.5 mmol/L (3.5-5.1); SODIUM 143 mmol/L (135-144)
[2017-06-13] MEDS: NYSTATIN SUSP 5 ML CUP PO ×2 (09:00→12:44)
[2017-06-13] MEDS: COLLAGENASE 5 GM (UD JAR) TOP (09:01)
[2017-06-13] MEDS: BALSAM PERU/CASTOR OIL 60 GM TUBE TOP (09:01)
[2017-06-13] MEDS: ENOXAPARIN 30 MG/0.3 ML SYG SC (09:01)
[2017-06-13] MEDS: LEVALBUTEROL (NEB) 0.63 MG/3 ML AMP HHN (10:03)
[2017-06-13] MEDS: IPRATROPIUM (NEB) 0.5 MG/2.5 ML AMP HHN (10:03)
[2017-06-13] MEDS: D5W-0.45 NACL + KCL 30 MEQ 1,000 ML IV (11:04)
[2017-06-13] MEDS: CLOTRIMAZOLE 1% 30 GM CR TOP (22:06)
[2017-06-14 05:49] LABS: ADD MAN DIFF? NO
[2017-06-14 05:56] LABS: WHITE BLOOD COUNT 8.9 10^3/ul (4.8-10.8)
[2017-06-14 05:56] LABS: BASOPHIL # 0.1 10^3/ul (0.0-0.1); BASOPHILS % 1.5 % (0.0-2.0); EOSINOPHILS # 0.2 10^3/ul (0.0-0.5); EOSINOPHILS % 2.1 % (0.0-7.0); HEMATOCRIT 32.4 % (37.0-47.0); HEMOGLOBIN 10.1 g/dl (12.0-16.0); LYMPHOCYTES % 21.9 % (15.0-51.0); MEAN CORPUSCULAR HEMOGLOBIN 27.7 pg (29.0-33.0); MEAN CORPUSCULAR HGB CONC 31.2 g/dl (32.0-37.0); MEAN CORPUSCULAR VOLUME 88.8 fl (82.0-101.0); MEAN PLATELET VOLUME 9.4 fl (7.4-10.4); MONOCYTE # 0.5 10^3/ul (0.3-0.9); NEUTROPHIL # 6.2 10^3/ul (1.6-7.5); NEUTROPHILS % 69.2 % (39.0-77.0); PLATELET COUNT 676 10^3/UL (140-415); RED BLOOD COUNT 3.65 10^6/ul (4.20-5.40); RED CELL DISTRIBUTION WIDTH 17.5 % (11.5-14.5)
[2017-06-14] MEDS: PANTOPRAZOLE 40 MG INJ IV (06:00)
[2017-06-14 06:18] LABS: ANION GAP 12 (8-16); BLOOD UREA NITROGEN 15 mg/dl (7-20); CARBON DIOXIDE 30 mmol/L (21-31); CHLORIDE 108 mmol/L (97-110); CREATININE 0.39 mg/dl (0.44-1.00); GLUCOSE 96 mg/dl (70-220); POTASSIUM 3.7 mmol/L (3.5-5.1); SODIUM 146 mmol/L (135-144)
[2017-06-14] MEDS: CLOTRIMAZOLE 1% 30 GM CR TOP (09:21)
[2017-06-14] MEDS: COLLAGENASE 5 GM (UD JAR) TOP (09:22)
[2017-06-14] MEDS: BALSAM PERU/CASTOR OIL 60 GM TUBE TOP (09:22)
[2017-06-14] MEDS: ENOXAPARIN 30 MG/0.3 ML SYG SC (09:38)
[2017-06-14] MEDS: LEVALBUTEROL (NEB) 0.63 MG/3 ML AMP HHN ×3 (10:12→19:53)
[2017-06-14] MEDS: IPRATROPIUM (NEB) 0.5 MG/2.5 ML AMP HHN ×3 (10:12→19:53)
[2017-06-14] MEDS: D5W-0.45 NACL + KCL 30 MEQ 1,000 ML IV (11:04)
[2017-06-15] MEDS: CLOTRIMAZOLE 1% 30 GM CR TOP ×2 (00:46→09:02)
[2017-06-15] MEDS: PANTOPRAZOLE 40 MG INJ IV (05:43)
[2017-06-15] MEDS: COLLAGENASE 5 GM (UD JAR) TOP (09:03)
[2017-06-15] MEDS: BALSAM PERU/CASTOR OIL 60 GM TUBE TOP (09:03)
[2017-06-15] MEDS: ENOXAPARIN 30 MG/0.3 ML SYG SC (09:05)
[2017-06-15] MEDS: D5W-0.45 NACL + KCL 30 MEQ 1,000 ML IV (11:04)
[2017-06-15] MEDS: LEVALBUTEROL (NEB) 0.63 MG/3 ML AMP HHN (11:19)
[2017-06-15] MEDS: IPRATROPIUM (NEB) 0.5 MG/2.5 ML AMP HHN (11:19)
[2017-06-15 14:48] LABS: ADD MAN DIFF? NO
[2017-06-15 14:50] LABS: WHITE BLOOD COUNT 8.1 10^3/ul (4.8-10.8)
[2017-06-15 14:50] LABS: BASOPHIL # 0.1 10^3/ul (0.0-0.1); BASOPHILS % 1.7 % (0.0-2.0); EOSINOPHILS # 0.2 10^3/ul (0.0-0.5); HEMATOCRIT 33.9 % (37.0-47.0); HEMOGLOBIN 10.8 g/dl (12.0-16.0); LYMPHOCYTES # 1.7 10^3/ul (0.8-2.9); MEAN CORPUSCULAR HEMOGLOBIN 28.3 pg (29.0-33.0); MEAN CORPUSCULAR HGB CONC 31.9 g/dl (32.0-37.0); MEAN PLATELET VOLUME 8.6 fl (7.4-10.4); MONOCYTE # 0.5 10^3/ul (0.3-0.9); MONOCYTES % 6.6 % (0.0-11.0); NEUTROPHIL # 5.5 10^3/ul (1.6-7.5); NEUTROPHILS % 68.5 % (39.0-77.0); PLATELET COUNT 668 10^3/UL (140-415); RED BLOOD COUNT 3.81 10^6/ul (4.20-5.40); RED CELL DISTRIBUTION WIDTH 17.4 % (11.5-14.5)
[2017-06-15 15:34] LABS: ANION GAP 10 (8-16); BLOOD UREA NITROGEN 13 mg/dl (7-20); CALCIUM 9.1 mg/dl (8.4-10.2); CARBON DIOXIDE 30 mmol/L (21-31); CHLORIDE 106 mmol/L (97-110); CREATININE 0.36 mg/dl (0.44-1.00); GLUCOSE 110 mg/dl (70-220); MAGNESIUM 1.8 mg/dl (1.7-2.5); POTASSIUM 3.1 mmol/L (3.5-5.1); SODIUM 143 mmol/L (135-144)
== END 2017-06-15 18:35 | disposition home or self-care (01) | DRG 853 ==
LOC: TEL 19:20 → MS2 06-09 05:36 → E/R 17:08 → ICU 05-30 19:45
PROC: 0DB80ZZ Excision of Small Intestine, Open Approach (ICD-10-PCS; principal; 2017-05-30 10:00)
PROC: 30233N1 Transfusion of Nonautologous Red Blood Cells into Peripheral Vein, Percutaneous Approach (ICD-10-PCS; 2017-05-30 18:21)
DX: A41.9 Sepsis, unspecified organism (principal); L89.324 Pressure ulcer of left buttock, stage 4; L89.314 Pressure ulcer of right buttock, stage 4; G92 Toxic encephalopathy; R65.21 Severe sepsis with septic shock; J96.91 Respiratory failure, unspecified with hypoxia; N39.0 Urinary tract infection, site not specified; N17.9 Acute kidney failure, unspecified; K56.609 Unspecified intestinal obstruction, unspecified as to partial versus complete obstruction; G71.0 Muscular dystrophy; D62 Acute posthemorrhagic anemia; L03.119 Cellulitis of unspecified part of limb; N31.9 Neuromuscular dysfunction of bladder, unspecified; E87.5 Hyperkalemia; Z93.6 Other artificial openings of urinary tract status; Z74.01 Bed confinement status; E03.9 Hypothyroidism, unspecified; E83.89 Other disorders of mineral metabolism; I10 Essential (primary) hypertension; I25.10 Atherosclerotic heart disease of native coronary artery without angina pectoris; E83.51 Hypocalcemia; B37.9 Candidiasis, unspecified; I48.91 Unspecified atrial fibrillation; R79.9 Abnormal finding of blood chemistry, unspecified
CPT/HCPCS: 36415; 36430; 71045; 74018; 74176; 74250; 76775; 80048; 80053; 81001; 81003; 82043; 82962; 83605; 83690; 83735; 84100; 84132; 84155; 84300; 84484; 85025; 85610; 85730; 86850; 86900; 86901; 86920; 87040; 87075; 87081; 87086; 88307; 93005; 93971; 94640; 94644; 94664; 96374; 96375; 97110; 97162; 97530; 99291-25